=== PATIENT | male | born 1965 | race Caucasian/White ===

== ENCOUNTER 2018-03-18 10:08 | Inpatient (IN) | payer BC ==
[~2018-03-18] VITALS: Ht 167.6 cm; Wt 59.9 kg
--- NOTE | 2018-03-18 10:14 | NUR ---
[facility] 06. PER REPORT, DIARRHEA SINCE YESTERDAY. GOWNED AND PLACED ON MONITOR. BLOOD PRESSURE, 80/60. PT IS AAO, VERBALLY RESPONSIVE. AWAITING MD LATIF.
--- NOTE | 2018-03-18 10:18 | NUR ---
DR BARONE AT BEDSIDE FOR EVAL.
[2018-03-18] MEDS ORDERED: MAG HYDROX/AL HYDROX/SIMETH 30 ML UDC ONE (10:25)
[2018-03-18] MEDS ORDERED: MAG HYDROX/AL HYDROX/SIMETH 30 ML UDC PO ONE (10:30)
[2018-03-18] MEDS ORDERED: IV NS 0.9% 1,000 ML BAG IV ONE ×2 (10:30→12:30)
--- NOTE | 2018-03-18 10:30 | NUR ---
IV LINE STARTED BLOOD DRAWN AND SENT TO LAB.
[2018-03-18 10:38] LABS: BASOPHILS # (AUTO) 0.1 /CMM (0.0-0.2); BASOPHILS % (AUTO) 0.8 % (0.0-2.0); EOSINOPHILS % (AUTO) 0.8 % (0.0-6.0); HEMATOCRIT 35 % (39-51); HEMOGLOBIN 11.1 g/dL (13.5-17.5); LYMPHOCYTES # (AUTO) 1.1 /CMM (0.8-4.8); LYMPHOCYTES % (AUTO) 15.3 % (20.0-44.0); MEAN CORPUSCULAR HGB CONC 31 g/dl (31.0-36.0); MEAN CORPUSCULAR VOLUME 90 fL (80-96); MONOCYTES # (AUTO) 0.8 /CMM (0.1-1.30); MONOCYTES % (AUTO) 10.7 % (2.0-12.0); NEUTROPHILS # (AUTO) 5.4 /CMM (1.8-8.9); NEUTROPHILS % (AUTO) 72.4 % (43.0-81.0); PLATELET COUNT (AUTO) 190 /CMM (150-450); RED BLOOD CELL COUNT(AUTO) 3.93 MIL/uL (4.5-6.0); WHITE BLOOD COUNT (AUTO) 7.4 K/uL (4.3-11.0)
[2018-03-18] MEDS ORDERED: ASPI-1169 PO (10:38)
[2018-03-18] MEDS ORDERED: MAGN400T26 PO (10:38)
[2018-03-18] MEDS ORDERED: MULT-447 PO (10:38)
[2018-03-18] MEDS ORDERED: MEMA10TA PO (10:38)
[2018-03-18] MEDS ORDERED: LENA5CAP PO (10:38)
[2018-03-18] MEDS ORDERED: PANT40TA2 PO (10:38)
[2018-03-18] MEDS ORDERED: MAGN400O6 PO (10:38)
[2018-03-18] MEDS ORDERED: VITA1TAB56 PO (10:38)
[2018-03-18] MEDS ORDERED: SILV20CR13 TP (10:38)
[2018-03-18] MEDS ORDERED: ESCI10TA PO (10:38)
[2018-03-18] MEDS ORDERED: HYDR4TAB4 PO (10:38)
[2018-03-18] MEDS ORDERED: ONDA8TAB6 PO (10:38)
[2018-03-18] MEDS ORDERED: GABA-534 PO (10:38)
[2018-03-18] MEDS ORDERED: CARB-95 PO (10:38)
[2018-03-18] MEDS ORDERED: ACET-2605 PO (10:38)
[2018-03-18] MEDS ORDERED: IPRA3AMP23 IH (10:38)
[2018-03-18] MEDS ORDERED: DOCU-141 PO (10:38)
[2018-03-18] MEDS ORDERED: ASCO500T9 PO (10:38)
[2018-03-18] MEDS ORDERED: ACID1TAB12 PO (10:38)
[2018-03-18 10:43] LABS: CALCIUM, SERUM 9.4 mg/dL (8.5-10.1); CREATININE 1.3 mg/dL (0.6-1.3); POTASSIUM 3.9 mmol/L (3.5-5.1)
[2018-03-18 10:49] LABS: BILIRUBIN,DIRECT 0.1 mg/dL (0.0-0.2); BILIRUBIN,TOTAL 0.4 mg/dL (0.2-1.0)
--- NOTE | 2018-03-18 11:00 | NUR ---
Note jefone in EDM - 03/18/18 at 1103 by YAEL PT RUMA FROM [facility] TO ER BED 06. PER REPORT, DIARRHEA SINCE YESTERDAY. GOWNED AND PLACED ON MONITOR. BLOOD PRESSURE, 80/60. PT IS AAO, VERBALLY RESPONSIVE. AWAITING MD LATIF.
[2018-03-18 11:01] LABS: BAND % (MANUAL) 3 % (0.0-5.0); EOSINOPHILS % (MANUAL) 1 % (0-4); LYMPHOCYTES % (MANUAL) 13 % (16-48); MONOCYTES % (MANUAL) 7 % (0-11.0); NEUTROPHILS % (MANUAL) 74 (42-76); REACTIVE LYMPHOCYTES 2 % (0-0)
--- NOTE | 2018-03-18 11:15 | NUR ---
PT TO RADIOLOGY FOR ABDOMINAL CT SCAN VIA [facility]
--- NOTE | 2018-03-18 13:18 | NUR ---
MS BRADLEY PAGED DR. DAMIAN CONTACTED DR. DAMIAN REGARDING ADMISSION ORDERS, AWAITING RESPONSE. Addendum: 03/18/18 at 1609 by PEDRITO STEWART RN ERROR: WRONG TIME, PLEASE DISREGARD.
--- NOTE | 2018-03-18 14:09 | NUR ---
TRANSFERED TO FLOOR. STABLE CONDITION. REPORT WAS GIVEN TO PEDRITO BRADLEY.
[2018-03-18 14:10] VITALS: BP 99/64
--- NOTE | 2018-03-18 14:10 | NUR ---
MS AUTOM[employer]BILE [employer]ICE STATION ATTENDANT NOTE RECEIVED PT FROM ER VIA JERMAIN CLEMENT OF ACUTE DEHYDRATION. PT IS ALERT TO SELF, ABLE TO MAKE BASIC NEEDS KNOWN AND ANSWER QUESTIONS. DENIES N/V, CHEST PAIN, SOB. NO ACUTE DISTRESS NOTED AT THIS TIME. BREATHING IS EVEN AND UNLABORED ON ROOM AIR. R WRIST #20G IV IS SALINE LOCKED WITHOUT REDNESS OR SWELLING. ALL BELONGINGS ACCOUNTED FOR AND BELONGINGS LIST SIGNED AND PLACED IN CHART. WOUND DOCUMENTATION COMPLETED PER PROTOCOL. NIECE AND CAREGIVER AT THE BEDSIDE TO ACCOMPANY PT. POLST AND ADVANCED DIRECTIVE COPIES PLACED IN CHART. PROVIDED UNIT ORIENTATION TO PT, NIECE AND CAREGIVER, ALL VERBALIZED UNDERSTANDING. BED IS AMBER AND IN LOWEST POSITION, SIDE RAILS UP X2, BED ALARM ON, CALL LIGHT WITHIN REACH. ADMITTING IS DR. BHAVANI DAMIAN, AWAITING ADMISSION ORDERS.
--- NOTE | 2018-03-18 14:30 | NUR ---
MS RN DR. BHAVANI DAMIAN AT THE BEDSIDE DR. BHAVANI DAMIAN AT THE BEDSIDE TO ASSESS PT. THE NURSE AND CAREGIVER ALERTED DR DAMIAN TO DX OF SHINGLES APPROXIMATELY [address] DAMIAN, SINCE PT HAS BEEN RECEIVING TREATMENT AND BECAUSE LESIONS ARE CRUSTED OVER, NO ISOLATION IS INDICATED AT THIS TIME. ADMISSION ORDERS PENDING.
--- NOTE | 2018-03-18 15:18 | NUR ---
MS RN PAGED DR. DAMIAN CONTACTED DR. DAMIAN REGARDING ADMISSION ORDERS, AWAITING RESPONSE.
[2018-03-18] MEDS ORDERED: ONDANSETRON HCL/PF 4 MG/2 ML VIAL IVP PRN (15:30)
[2018-03-18] MEDS ORDERED: Z GUARD REMEDY 2 OZ OINT TP PRN (15:30)
[2018-03-18] MEDS: IV NS 0.9% 1,000 ML IV PRN (15:52)
[2018-03-18] MEDS: ENOXAPARIN SODIUM 40 MG/0.4 ML DISP.SYRIN SQ SCH ×2 (15:53→21:00)
[2018-03-18 16:00] VITALS: BP 91/54
[2018-03-18 16:30] VITALS: BP 95/58
--- NOTE | 2018-03-18 16:55 | NUR ---
MS BRADLEY C. DIFF SAMPLE C. DIFF STOOL SAMPLE COLLECTED AND HAND DELIVERED TO PHARMACY PER PROTOCOL.
[2018-03-18] MEDS: CEFTRIAXONE 1 G in IV D5W 50 ML IV SCH (16:57)
--- NOTE | 2018-03-18 17:30 | NUR ---
MS BRADLEY MRSA SWAB MRSA SWAB OBTAINED PER PROTOCOL. INFORMED SILVANO IN LAB FOR PHONE BANKER.
[2018-03-18] MEDS: VANCOMYCIN HCL 125 MG/2.5 ML ORAL.SUSP PO SCH ×2 (17:54→23:44)
[2018-03-18 18:00] VITALS: BP 93/57
[2018-03-18 18:19] VITALS: BP 100/63
--- NOTE | 2018-03-18 18:21 | NUR ---
MS RN CLOSING NOTE PT IN BED, SLEEPING AND EASILY AROUSABLE. PT IS ALERT X1, ABLE TO MAKE BASIC NEEDS KNOWN AND ANSWER QUESTIONS. DENIES N/V, CHEST PAIN, SOB. NO ACUTE DISTRESS NOTED AT THIS TIME. BREATHING IS EVEN AND UNLABORED ON 2L NC. R WRIST #20G IV IS INFUSING NS @100ML/HR WITHOUT REDNESS OR SWELLING. PT ASSISTED TO TURN AND REPOSITION Q2H FOR THE DURATION OF THE SHIFT, ADLS PROVIDED. ALL NEEDS ATTENDED TO, BED IS LOCKED AND IN LOWEST POSITION, SIDE RAILS UP X2, BED ALARM ON, CALL LIGHT WITHIN REACH. WILL ENDORSE TO LEAD DIE MOLDER RN FOR CONTINUITY OF CARE.
--- NOTE | 2018-03-18 19:30 | NUR ---
MS/RN RECEIVE PATIENT SLEEPING, CALM AND COMFORTABLE, BREATHING EVEN AND UNLABORED, NO SIGNS OF DISTRESS NOTED, CALL LIGHT IN REACH. WILL MONITOR.
[2018-03-18 20:00] VITALS: BP 92/57
--- NOTE | 2018-03-18 22:31 | NUR ---
MS/RN LOVENOX WAS NOT GIVEN, THIS MED WAS GIVEN AT 15:53 TODAY.
--- NOTE | 2018-03-18 23:48 | NUR ---
MS/RN PATIENT IS AWAKE AT THIS TIME, VANCOMYCIN PO WAS GIVEN ORDERED. WILL CONTINUE TO MONITOR.
[2018-03-19] MEDS: IV NS 0.9% 1,000 ML IV PRN ×2 (04:54→17:40)
[2018-03-19] MEDS: VANCOMYCIN HCL 125 MG/2.5 ML ORAL.SUSP PO SCH ×3 (06:03→18:15)
[2018-03-19 06:33] LABS: BASOPHILS % (AUTO) 0.5 % (0.0-2.0); EOSINOPHILS % (AUTO) 2.4 % (0.0-6.0); HEMATOCRIT 28 % (39-51); HEMOGLOBIN 8.9 g/dL (13.5-17.5); LYMPHOCYTES # (AUTO) 0.7 /CMM (0.8-4.8); LYMPHOCYTES % (AUTO) 14.9 % (20.0-44.0); MEAN CORPUSCULAR HGB CONC 32 g/dl (31.0-36.0); MEAN CORPUSCULAR VOLUME 89 fL (80-96); MONOCYTES # (AUTO) 0.5 /CMM (0.1-1.30); MONOCYTES % (AUTO) 9.9 % (2.0-12.0); NEUTROPHILS # (AUTO) 3.4 /CMM (1.8-8.9); NEUTROPHILS % (AUTO) 72.3 % (43.0-81.0); PLATELET COUNT (AUTO) 136 /CMM (150-450); RED BLOOD CELL COUNT(AUTO) 3.14 MIL/uL (4.5-6.0); WHITE BLOOD COUNT (AUTO) 4.7 K/uL (4.3-11.0)
--- NOTE | 2018-03-19 06:38 | NUR ---
MS/RN PATIENT IS AWAKE, ALERT, COMFORTABLE, NO CHANGE IN CONDITION, ALL NEEDS ATTENDED AT THIS TIME, WILL CONTINUE TO MONITOR.
[2018-03-19 06:51] LABS: THYROID STIMULATING HORMONE 1.816 uIU/mL (0.358-3.74)
[2018-03-19 06:56] LABS: ALBUMIN 1.7 g/dL (3.4-5.0); BILIRUBIN,TOTAL 0.3 mg/dL (0.2-1.0); CALCIUM, SERUM 9.1 mg/dL (8.5-10.1); MAGNESIUM 1.6 mg/dL (1.8-2.4); PHOSPHORUS 2.8 mg/dL (2.5-4.9); TOTAL PROTEIN, SERUM 4.2 g/dL (6.4-8.2)
[2018-03-19 06:59] LABS: POTASSIUM 2.8 mmol/L (3.5-5.1)
--- NOTE | 2018-03-19 07:10 | NUR ---
MS RN OPENING PT IN BED, SLEEPING AND EASILY AROUSABLE. PT A/O X2. DENIES N/V, CHEST PAIN, SOB. NO ACUTE DISTRESS NOTED AT THIS TIME. BREATHING IS EVEN AND UNLABORED ON 2L NC. R WRIST #20G IV IS INFUSING NS @100ML/HR . BED IS LOCKED AND IN LOWEST POSITION, SIDE RAILS UP X2, BED ALARM ON, CALL LIGHT WITHIN REACH
--- NOTE | 2018-03-19 07:19 | NUR ---
MS/RN RECEIVED A CALL FROM LAB RE: K=2.8, ENDORSED TO NEXT RN.
[2018-03-19 08:00] VITALS: BP 86/57
[2018-03-19] MEDS: PANTOPRAZOLE 40 MG TABLET.DR PO SCH (09:24)
[2018-03-19] MEDS: Magnesium 1GM/D5W 100ML PREMIX 100 ML IV SCH ×2 (09:24→10:22)
[2018-03-19] MEDS: POTASSIUM CHLORIDE 20 MEQ TAB.PRT.SR PO SCH ×3 (09:24→12:29)
[2018-03-19] MEDS: ACETAMINOPHEN 325 MG TABLET PO PRN ×2 (10:25→17:22)
[2018-03-19] MEDS: CEFTRIAXONE 1 G in IV D5W 50 ML IV SCH (15:35)
[2018-03-19 16:00] VITALS: BP 101/63
--- NOTE | 2018-03-19 17:30 | NUR ---
PT COMPLAINED OF PAIN IN LOWER EXTREMITIES. PAGED DR CABRALES FOR PRN PAIN MEDS.
--- NOTE | 2018-03-19 18:25 | NUR ---
MS RN CLOSING NOTES PT IN BED, AWAKE A/O X2. NO ACUTE DISTRESS NOTED AT THIS TIME. BREATHING IS EVEN AND UNLABORED ON 2L NC. R WRIST #20G IV IS INFUSING NS @100ML/HR . ALL NEEDS ATTENDED, TURNED AND REPOSITIONED Q2H. BED IS LOCKED AND IN LOWEST POSITION, SIDE RAILS UP X2, BED ALARM ON, CALL LIGHT WITHIN REACH. WILL ENDORSE TO NEXT SHIFT
--- NOTE | 2018-03-19 18:59 | NUR ---
RECEIVED ORDER FROM DR YUDELKA CLARK5/325 Q6H PRN.
[2018-03-19] MEDS ORDERED: HYDROCODONE/APAP 5/325MG 1 EACH TABLET PO PRN ×2 (19:00→19:30)
--- NOTE | 2018-03-19 19:42 | NUR ---
MS/RN RECEIVE PATIENT APPEAR SLEEPING, APPEAR COMFORTABLE, BREATHING EVEN AND UNLABORED, IVF INFUSING, CALL LIGHT IN REACH. WILL MONITOR.
[2018-03-19 20:00] VITALS: BP 92/52
[2018-03-19] MEDS: ENOXAPARIN SODIUM 40 MG/0.4 ML DISP.SYRIN SQ SCH (21:34)
[2018-03-20] VITALS: BP 119/69
[2018-03-20] MEDS: VANCOMYCIN HCL 125 MG/2.5 ML ORAL.SUSP PO SCH ×4 (00:15→18:07)
[2018-03-20 06:45] LABS: BASOPHILS % (AUTO) 0.4 % (0.0-2.0); EOSINOPHILS % (AUTO) 0.9 % (0.0-6.0); HEMATOCRIT 29 % (39-51); HEMOGLOBIN 9.1 g/dL (13.5-17.5); LYMPHOCYTES # (AUTO) 0.6 /CMM (0.8-4.8); LYMPHOCYTES % (AUTO) 12.6 % (20.0-44.0); MEAN CORPUSCULAR HGB CONC 32 g/dl (31.0-36.0); MEAN CORPUSCULAR VOLUME 90 fL (80-96); MONOCYTES # (AUTO) 0.4 /CMM (0.1-1.30); MONOCYTES % (AUTO) 8.1 % (2.0-12.0); PLATELET COUNT (AUTO) 145 /CMM (150-450); RED BLOOD CELL COUNT(AUTO) 3.19 MIL/uL (4.5-6.0); WHITE BLOOD COUNT (AUTO) 5.1 K/uL (4.3-11.0)
[2018-03-20 07:14] LABS: CALCIUM, SERUM 8.3 mg/dL (8.5-10.1); CREATININE 0.9 mg/dL (0.6-1.3); MAGNESIUM 1.8 mg/dL (1.8-2.4); PHOSPHORUS 2.8 mg/dL (2.5-4.9)
[2018-03-20 07:37] LABS: POTASSIUM 2.8 mmol/L (3.5-5.1)
[2018-03-20] MEDS: IV NS 0.9% 1,000 ML IV PRN ×2 (07:59→22:02)
[2018-03-20 08:00] VITALS: BP_SYST 117; BP_SYST 96; BP_DIAS 60; BP_DIAS 75
--- NOTE | 2018-03-20 08:00 | NUR ---
MS RN RECEIVED ON BED, AWAKE,ALERT,ORIENTED X2, NOT IN ANY FORM OF DISTRESS, RESPIRATIONS EVEN AND UNLABORED,NO SOB NOTED,WILL MONITOR PATIENT.
--- NOTE | 2018-03-20 08:00 | NUR ---
MNS/RN PATIENT IS AWAKE, COMFORTABLE, NO DISTRESS NOTED, ALL NEEDS ATTENDED AT THIS TIME, WILL CONTINUE TO MONITOR.
[2018-03-20] MEDS: PANTOPRAZOLE 40 MG TABLET.DR PO SCH (08:24)
--- NOTE | 2018-03-20 08:30 | NUR ---
MS BRADLEY RECEIVED A CRITICAL K - RESULT - 2.8 W/ ORDERS MADE AND CARRIED OUT FROM DR. CABRALES.
--- NOTE | 2018-03-20 09:00 | NUR ---
MS BRADLEY BREAKFAST SERVED,DUE MEDS GIVEN,TOLERATED WELL.
[2018-03-20] MEDS: ENSURE ENLIVE CHOC 237 ML CAN PO SCH ×3 (10:00→18:06)
[2018-03-20] MEDS: ACETAMINOPHEN 325 MG TABLET PO PRN (12:54)
[2018-03-20] MEDS: POTASSIUM CHLORIDE 20 MEQ TAB.PRT.SR PO SCH ×3 (12:56→18:08)
[2018-03-20] MEDS ORDERED: REVLIMID 5 MG PO SCH (14:00)
[2018-03-20] MEDS: HYDROMORPHONE HCL 2 MG TABLET PO PRN ×2 (14:22→21:13)
[2018-03-20 16:00] VITALS: BP 119/66
--- NOTE | 2018-03-20 16:00 | NUR ---
MS RN MS RECEIVED CALL FROM [facility], PATIENT IS C DIFF POSITIVE ,ON IV ATB ALREADY.
--- NOTE | 2018-03-20 16:59 | NUR ---
MS RN RECEIVED A CALL FROM [facility] W/ POSITIVE MRSA W/ ORDER FROM DR. CABRALES.
--- NOTE | 2018-03-20 17:00 | NUR ---
MS RN PATIENT ON ISOLATION NOW.
--- NOTE | 2018-03-20 18:57 | NUR ---
ms rn on bed, no distress noted,all needs attended.
--- NOTE | 2018-03-20 19:35 | NUR ---
MS RN NOTES RECEIVED RESTING COMFORTABLY ON BED,BREATHING REGULAR,NOT IN ANY FORM OF DISTRESS/ON ISOLATION PRECAUTION FOR MRSA NARES AND C-DIFF POSITIVE.INCONTINENT OF URINE,NOTED SACRAL WOUND,DRESSING IN PLACE,MULTIPLE OLD DRY WOUND ON BILATERAL THIGH AND LEFT GROIN.WILL PUT ON SPECIALTY MATTRES.ON NS AT 100ML /HR RATE INFUSING ON LEFT AC.WILL CONTINUE TO MONITOR STATUS.
[2018-03-20 20:00] VITALS: BP 101/63
[2018-03-20] MEDS: MUPIROCIN OINT 2% 22 GM TUBE SCH (21:00)
--- NOTE | 2018-03-20 21:00 | NUR ---
MS RN NOTES PLACE ON GEL BED FOR WOUND MANAGEMENT.DRESSING CHANGE DONE ON SACRAL AREA WITH XEROFOARM AND APPLIED MEPILEX.
[2018-03-20] MEDS: ENOXAPARIN SODIUM 40 MG/0.4 ML DISP.SYRIN SQ SCH (21:01)
--- NOTE | 2018-03-20 21:13 | NUR ---
MS RN NOTES C/O PAIN ON SACRAL AREA 9/10 ON PAIN SCALE,MEDICATED WITH DILAUDID 4MG PO ORDERED,TAKEN WELL,NEGATIVE FOR ASPIRATION
[2018-03-21] MEDS: VANCOMYCIN HCL 125 MG/2.5 ML ORAL.SUSP PO SCH ×4 (00:08→17:42)
--- NOTE | 2018-03-21 01:00 | NUR ---
MS RN NOTES SLEEPING,KEPT WARM AND COMFORTABLE.
--- NOTE | 2018-03-21 04:30 | NUR ---
MS RN NOTES SALINE LOCK ACCIDENTALLY PULLED OUT.NEW SALINE LOCK PLACE ON RIGHT FOREARM #22.IVF RE STARTED.
--- NOTE | 2018-03-21 06:21 | NUR ---
MS RN NOTES REMAINS ON ISOLATION PRECAUTION FOR MRSA NARES AND C-DIFF POSITIVE.WITH ON E LOOSE BM,PAIN MANAGEMENT EFFECTIVE.BLIND ON BOTH EYES.CALL LIGHT IN REACH,NEEDS ATTENDED.WILL ENDORSE TO DAY NURSE FOR BALA.
--- NOTE | 2018-03-21 06:30 | NUR ---
MS RN NOTED SEEN AND EXAMINED BY [facility] WOUND CARE NURSE,NOTED DTI ON RIGHT HEEL 1.5 X1.5CM,APPLIED MEPILEX AND ELEVATED ON PILLOWS,OFF LOAD FROM BED MATTRESS.
[2018-03-21 06:35] LABS: BASOPHILS % (AUTO) 0.7 % (0.0-2.0); CALCIUM, SERUM 8.1 mg/dL (8.5-10.1); CREATININE 0.9 mg/dL (0.6-1.3); EOSINOPHILS % (AUTO) 3.9 % (0.0-6.0); HEMATOCRIT 27 % (39-51); HEMOGLOBIN 8.6 g/dL (13.5-17.5); LYMPHOCYTES # (AUTO) 0.5 /CMM (0.8-4.8); LYMPHOCYTES % (AUTO) 15.1 % (20.0-44.0); MAGNESIUM 1.4 mg/dL (1.8-2.4); MEAN CORPUSCULAR HGB CONC 32 g/dl (31.0-36.0); MEAN CORPUSCULAR VOLUME 89 fL (80-96); MONOCYTES # (AUTO) 0.5 /CMM (0.1-1.30); NEUTROPHILS # (AUTO) 2.2 /CMM (1.8-8.9); NEUTROPHILS % (AUTO) 65.3 % (43.0-81.0); PHOSPHORUS 1.9 mg/dL (2.5-4.9); PLATELET COUNT (AUTO) 128 /CMM (150-450); POTASSIUM 3.4 mmol/L (3.5-5.1); RED BLOOD CELL COUNT(AUTO) 3.02 MIL/uL (4.5-6.0); WHITE BLOOD COUNT (AUTO) 3.4 K/uL (4.3-11.0)
--- NOTE | 2018-03-21 07:30 | NUR ---
MS RN OPENING NOTE RECEIVED PT IN BED, ALERT AND ORIENTED X1-2, ABLE TO FOLLOW COMMANDS AND MAKE NEEDS KNOWN. NO ACUTE DISTRESS NOTED AT THIS TIME. PT DENIES ANY PAIN. BREATHING IS EVEN AND UNLABORED ON 4.5L NC. R FA @22G IV IS INFUSING NS @ 100ML/HR WITHOUT REDNESS OR SWELLING. ASPIRATION AND CONTACT PRECAUTIONS MAINTAINED. ALL NEEDS ATTENDED TO, BED IS LOCKED AND IN LOWEST POSITION, SIDE RAILS UP X3, BED ALARM ON, CALL LIGHT WITHIN REACH.
--- NOTE | 2018-03-21 07:42 | NUR ---
WOUND CARE CONSULT PATIENT SEEN AND SKIN INTEGRITY ASSESSMENT DONE. SEE SPEECH WRITER ASSESSMENT IN PCS FOR TODAY. PATIENT WITH MI AT 12, RECOMMEND TURNING Q 2 HOURS AND BILATERAL HEEL FLOATING. ALL SKIN MANAGEMENT AND PRESSURE ULCER PREVENTION MEASURES DISCUSSED WITH NURSING AT THE BEDSIDE. DR SAMRA WALKER HAS BEEN NOTIFIED OF THE SACRAL STAGE 4 PRESSURE ULCER CONSULT. WILL DEFER DRY HEALING SHINGLES RASHES TO PMD. Addendum: 03/21/18 at 0745 by MARIAM CERRATO WNDNU Amended: Links added.
[2018-03-21 08:00] VITALS: BP_SYST 114; BP_DIAS 74; BP_DIAS 75
[2018-03-21] MEDS: PANTOPRAZOLE 40 MG TABLET.DR PO SCH (08:16)
[2018-03-21] MEDS: ENSURE ENLIVE CHOC 237 ML CAN PO SCH ×3 (08:30→17:43)
[2018-03-21] MEDS: MUPIROCIN OINT 2% 22 GM TUBE SCH ×2 (08:30→20:38)
[2018-03-21] MEDS: ACETAMINOPHEN 325 MG TABLET PO PRN ×2 (08:42→20:45)
--- NOTE | 2018-03-21 08:43 | NUR ---
MS RN PAIN CONTROL PT REPORTS PAIN10/10 THAT IS STABBING AT THE SACRUM DUE TO THIS WOUND. DILAUDID 2MG PO ORDERED FOR PAIN CONTROL HOWEVER PT BP IS 104/60. PT AGREEABLE TO TAKING TYLENOL 650MG FOR PAIN CONTROL FOR NOW AND TO ELEVATE LEGS AND EAT BREAKFAST TO INCREASE BP PRIOR TO DILAUDID ADMINISTRATION. WILL CONTINUE TO MONITOR.
[2018-03-21] MEDS ORDERED: POTASSIUM CHLORIDE 20 MEQ TAB.PRT.SR PO SCH (10:00)
[2018-03-21] MEDS: DAKINS QUARTER STRENGTH (0.125%) 480 ML BOTTLE TOP SCH (10:12)
[2018-03-21] MEDS: Magnesium 1GM/D5W 100ML PREMIX 100 ML IV SCH ×4 (10:14→14:16)
[2018-03-21] MEDS: HYDROMORPHONE HCL 2 MG TABLET PO PRN (10:30)
--- NOTE | 2018-03-21 10:30 | NUR ---
MS RN DILAUDID DILAUDID 4MG PO ADMINISTERED ORDERED FOR SEVERE PAIN AT THE SACRUM RATED 9/10 THAT IS SHARP AND STABBING. PT STATES HE DOES NOT WANT TO EAT BREAKFAST UNTIL THE PAIN IS BETTER CONTROLLED SINCE HE CANNOT SIT UP DUE TOT HE PAIN. BP: 111/75, HR: 110. WILL CONTINUE TO MONITOR.
[2018-03-21] MEDS ORDERED: K PHOS NEUTRAL 250 MG TABLET PO ONE (11:00)
--- NOTE | 2018-03-21 11:00 | NUR ---
MS RN BREAKFAST PT REFUSED THE REST OF BREAKFAST, ABLE TO FINISH ENTIRE GLUCERNA SHAKE AND 1 APPLE JUICE, HOWEVER REFUSED THE REST OF BREAKFAST.
[2018-03-21] MEDS ORDERED: SILVER NITRATE APPLICATOR 1 EA BOX TP ONE (12:30)
--- NOTE | 2018-03-21 12:30 | NUR ---
MS RN AURELIANO UGTIERREZ, PRIVATE CAREGIVER, SON BRISSA WILL BRING HOME MEDICATION REVLIMID TOMORROW MORNING.
--- NOTE | 2018-03-21 13:00 | NUR ---
MS RN LUNCH PT REFUSED TO EAT LUNCH PROVIDED BY HOSPITAL. PT DID EAT A FEW BITES OF [place] PROVIDED BY PRIVATE CAREGIVER MATT AND DID FINISH CHOCOLATE ENSURE.
--- NOTE | 2018-03-21 14:58 | NUR ---
MS RN TELEPHONE CONSENT TELEPHONE CONSENT OBTAINED VIA 2 RN VERIFICATION FROM YOLANDE ARAUJO FOR EXCISIONAL DEBRIDEMENT OF SACRAL WOUND SCHEDULED FOR TOMORROW. CONSENT PLACED IN CHART.
[2018-03-21] MEDS: RIFAMPIN 300 MG CAPSULE PO SCH (15:28)
[2018-03-21 16:00] VITALS: BP_SYST 107; BP_SYST 118; BP_DIAS 73; BP_DIAS 78
--- NOTE | 2018-03-21 17:00 | NUR ---
MS RN DINNER PT REFUSED DINNER TRAY EXCEPT ENSURE CHOCOLATE SHAKE AND APPLE JUICE. STATED HE DOES NOT FEEL UP TO EATING. ENCOURAGED PO INTAKE, WILL REQUEST DIETARY EVALUATION/FOLLOW UP.
[2018-03-21] MEDS: GABAPENTIN 300 MG CAPSULE PO SCH (17:41)
[2018-03-21] MEDS: CARBIDOPA/LEVA CR 25/100MG 1 TAB.SA PO SCH (17:42)
[2018-03-21] MEDS: IV NS 0.9% 1,000 ML IV PRN (17:42)
[2018-03-21] MEDS: ACIDOPHILUS/BULGARICUS 1 EACH TAB.CHEW PO SCH (17:42)
--- NOTE | 2018-03-21 18:11 | NUR ---
MS RN CLOSING NOTE PT IN BED, ALERT AND ORIENTED X1-2, ABLE TO FOLLOW COMMANDS AND MAKE NEEDS KNOWN. NO ACUTE DISTRESS NOTED AT THIS TIME. PT DENIES ANY PAIN. BREATHING IS EVEN AND UNLABORED ON 4.5L NC. R FA #22G IV IS INFUSING NS @ 100ML/HR WITHOUT REDNESS OR SWELLING. ASPIRATION AND CONTACT PRECAUTIONS MAINTAINED. ALDS PROVIDED AND PT ASSISTED TO TURN AND REPOSITION Q2H FOR THE DURATION OF THE SHIFT. WOUND CARE PROVIDED ORDERED. PT HAD POOR PO INTAKE WHEN FED WITH ASSISTANCE FOR BREAKFAST, LUNCH, AND DINNER. DIETARY CONSULT TO FOLLOW UP. ALL NEEDS ATTENDED TO, BED IS LOCKED AND IN LOWEST POSITION, SIDE RAILS UP X3, BED ALARM ON, CALL LIGHT WITHIN REACH. WILL ENDORSE TO CORE PLACER RN FOR CONTINUITY OF CARE.
--- NOTE | 2018-03-21 19:45 | NUR ---
MS RN NOTES RECEIVED ON BED A/O X1-2,NO SOB,O2 IN USED AT 2L/NC TO KEEP O2 SAT ABOVE 90%,O2 SAT 96% THIS TIME.PATIENT PULLED OUT HIS IV LINE.NOTED MULTIPLE DRY WOUNDON BOTH UPPER AND LOWER EXTREMITIES PROMINENTLY ON LEFT LEG.RIGHT HEEL DTI WITH MEPILEX OFFLOADING FROM BED MATTRESS.REPOSITION Q 2 HOURS PER PROTOCOL
[2018-03-21 20:00] VITALS: BP 96/61
--- NOTE | 2018-03-21 20:00 | NUR ---
MS RN NOTES ISOLATION PRECAUTION FOR MRSA NARES AND C-DIFF POSITIVE.ON BACTROBAN.
--- NOTE | 2018-03-21 20:00 | NUR ---
MS RN NOTES NEW SALINE LOCK PLACE ON LEFT WRIST #22,SECURED WITH KERLIX.IVF RE STARTED.
[2018-03-21] MEDS: ENOXAPARIN SODIUM 40 MG/0.4 ML DISP.SYRIN SQ SCH (20:36)
--- NOTE | 2018-03-21 20:45 | NUR ---
MS RN NOTES C/O MILD LOWER BACK PAIN,TYLENOL 650MG PO GIVEN WITH APPLE SAUCE,TAKEN WELL.NEGATIVE FOR ASPIRATION
[2018-03-22] MEDS: VANCOMYCIN HCL 125 MG/2.5 ML ORAL.SUSP PO SCH ×4 (00:25→17:10)
[2018-03-22] MEDS: IV NS 0.9% 1,000 ML IV PRN ×2 (04:13→20:54)
[2018-03-22] MEDS: ACETAMINOPHEN 325 MG TABLET PO PRN (05:58)
--- NOTE | 2018-03-22 05:58 | NUR ---
MS RN NOTES AWAKE,MORNING CARE RENDERED BY ROSE SUERO.C/O MILD PAIN ON SACRAL AREA,MEDICATED WITH TYLENOL 650MG PO WITH PUDDING TOLERATED WELL.NEGATIVE FOR ASPIRATION.
[2018-03-22 07:03] LABS: BASOPHILS % (AUTO) 1.2 % (0.0-2.0); EOSINOPHILS % (AUTO) 4.9 % (0.0-6.0); HEMATOCRIT 28 % (39-51); HEMOGLOBIN 8.9 g/dL (13.5-17.5); LYMPHOCYTES # (AUTO) 0.5 /CMM (0.8-4.8); LYMPHOCYTES % (AUTO) 17.9 % (20.0-44.0); MEAN CORPUSCULAR HGB CONC 32 g/dl (31.0-36.0); MEAN CORPUSCULAR VOLUME 89 fL (80-96); MONOCYTES # (AUTO) 0.3 /CMM (0.1-1.30); MONOCYTES % (AUTO) 13.5 % (2.0-12.0); NEUTROPHILS # (AUTO) 1.6 /CMM (1.8-8.9); NEUTROPHILS % (AUTO) 62.5 % (43.0-81.0); PLATELET COUNT (AUTO) 116 /CMM (150-450); RED BLOOD CELL COUNT(AUTO) 3.12 MIL/uL (4.5-6.0); WHITE BLOOD COUNT (AUTO) 2.6 K/uL (4.3-11.0)
--- NOTE | 2018-03-22 07:25 | NUR ---
MS RN NOTES ON BED,SLEEPING BUT AROUSABLE TO VERBAL STIMULI,BREATHING REGULAR,IVF IN PROGRESS,STILL ON ISOLATION PRECAUTION FOR MRSA NARES AND C-DIFF.FOR WOUND DEBRIDEMENT AT BEDSIDE TODAY,CONSENT ON CHART.ENDORSED TO LOLLY BRADLEY FOR BALA
[2018-03-22 07:28] LABS: CALCIUM, SERUM 7.2 mg/dL (8.5-10.1); CREATININE 0.8 mg/dL (0.6-1.3); MAGNESIUM 1.9 mg/dL (1.8-2.4); PHOSPHORUS 2.1 mg/dL (2.5-4.9)
--- NOTE | 2018-03-22 07:30 | NUR ---
MS RN OPENING NOTES RECEIVED PATIENT IN STABLE CONDITION. IN NO APPARENT DISTRESS. BEDSIDE RAILS ARE UPX2. BED IS LOCKED AND LOWERED. CALL LIGHT IS WITHIN REACH. IV LINE IS INTACT AND PATENT. WILL CONTINUE TO MONITOR PATIENT.
[2018-03-22 07:45] LABS: POTASSIUM 2.8 mmol/L (3.5-5.1)
[2018-03-22 07:57] LABS: LYMPHOCYTES % (MANUAL) 15 % (16-48); NEUTROPHILS % (MANUAL) 68 (42-76)
[2018-03-22 07:58] LABS: EOSINOPHILS % (MANUAL) 5 % (0-4); MONOCYTES % (MANUAL) 12 % (0-11.0)
[2018-03-22 08:00] VITALS: BP 111/67
[2018-03-22] MEDS: GABAPENTIN 300 MG CAPSULE PO SCH ×3 (09:07→17:10)
[2018-03-22] MEDS: ACIDOPHILUS/BULGARICUS 1 EACH TAB.CHEW PO SCH ×2 (09:07→17:10)
[2018-03-22] MEDS: ESCITALOPRAM OXALATE (10 MG) 10 MG TABLET PO SCH (09:07)
[2018-03-22] MEDS: MEMANTINE HCL 5 MG TABLET PO SCH (09:08)
[2018-03-22] MEDS: CARBIDOPA/LEVA CR 25/100MG 1 TAB.SA PO SCH ×3 (09:08→17:10)
[2018-03-22] MEDS: PANTOPRAZOLE 40 MG TABLET.DR PO SCH (09:08)
[2018-03-22] MEDS: POTASSIUM CHLORIDE 20 MEQ TAB.PRT.SR PO SCH (09:08)
[2018-03-22] MEDS: RIFAMPIN 300 MG CAPSULE PO SCH (09:08)
[2018-03-22] MEDS: ASPIRIN 81 MG TAB.CHEW PO SCH (09:08)
[2018-03-22] MEDS: MUPIROCIN OINT 2% 22 GM TUBE SCH ×2 (09:09→20:33)
[2018-03-22] MEDS: POTASSIUM CL. PREMIX PERIPHER. 50 ML IV SCH ×4 (09:09→14:26)
[2018-03-22] MEDS: DAKINS QUARTER STRENGTH (0.125%) 480 ML BOTTLE TOP SCH (09:09)
[2018-03-22] MEDS: ENSURE ENLIVE CHOC 237 ML CAN PO SCH ×3 (09:19→17:09)
[2018-03-22] MEDS: HYDROMORPHONE HCL 2 MG TABLET PO PRN ×2 (09:21→20:22)
[2018-03-22] MEDS ORDERED: K PHOS NEUTRAL 250 MG TABLET PO ONE (13:00)
[2018-03-22 16:00] VITALS: BP 110/72
[2018-03-22] MEDS: REVLIMID 5 MG PO SCH (17:45)
--- NOTE | 2018-03-22 18:38 | NUR ---
MS RN CLOSING NOTES PATIENT IS IN STABLE CONDITION. IN NO APPARENT DISTRESS. BEDSIDE RAILS ARE UPX2. BED IS LOCKED AND LOWERED. CALL LIGHT IS WITHIN REACH. IV LINE IS INTACT AND PATENT. WILL ENDORSE CARE TO SELF PROPELLED DREDGE OPERATOR NURSE FOR BALA.
--- NOTE | 2018-03-22 19:10 | NUR ---
RN MS OPENING NOTES RECEIVED PATIENT IN BED AWAKE ALERT AND ORIENTED X 2, ABLE TO MAKE SIMPLE NEEDS KNOWN, RESPIRATIONS EVEN AND UNLABORED WITH EQUAL RISE AND FALL OF CHEST, DENIES ANY PAIN OR DISCOMFORT AT THIS TIME, ON 02 2 L VIA NC, TOLERATING WELL. ON CONTACT ISOLATION PRECAUTIONS FOR CDIFF AND MRSA NARES. PRECAUTIONS RENDERED, LEFT WRIST IV SITE #22 G INTACT AND PATENT IVF RUNNING ORDERED, ORIENTED TO STAFF, SAFETY PRECAUTIONS IN PLACE, LOW BED AND LOCKED, FLUIDS OFFERED, ALL NEEDS ATTENDED REMAINS COMFORTABLE WILL CONTINUE TO MONITOR AND ATTEND TO NEEDS.
[2018-03-22 20:00] VITALS: BP 98/68
[2018-03-22 20:02] VITALS: BP 98/68
--- NOTE | 2018-03-22 20:22 | NUR ---
RN MS NOTES PATIENT COMPLAINT OF PAIN TO BOTH LEGS 10/ REQUESTING FOR PAIN MEDICATION VS WNL 98/68,113,18,99% 2 L. DILAUDID PO PRN GIVEN ORDERED WILL CONTINUE TO MONITOR FOR EFFECTIVENESS.
[2018-03-22] MEDS: ENOXAPARIN SODIUM 40 MG/0.4 ML DISP.SYRIN SQ SCH (20:54)
--- NOTE | 2018-03-22 20:55 | NUR ---
RN MS NOTES CALLED AND SPOKE TO DR. VANESSA REGARDING LOVENOX SCHEDULED FOR 2100 AT 40MG. MADE AWARE OF PATIENT LABS HEMOGLOBIN 8.9 [id number] AND [id number] PER MD OKJESSA TO GIVE. NO BLEEDING PRESENT, WILL GIVE ORDERED AND CONTINUE TO MONITOR.
[2018-03-23] MEDS: VANCOMYCIN HCL 125 MG/2.5 ML ORAL.SUSP PO SCH ×5 (00:25→23:56)
[2018-03-23] MEDS: HYDROMORPHONE HCL 2 MG TABLET PO PRN ×3 (05:28→22:19)
--- NOTE | 2018-03-23 05:28 | NUR ---
RN MS NOTES PATIENT COMPLAINT OF PAIN 8/10 TO BILATERAL LOWER LEGS, REQUESTING FOR PAIN MEDICATION DILAUDID PO PRN OFFERED PATIENT AGREED. VS TAKEN WNL 101/66,88,96,18 DILAUDID 4MG GIVEN ORDERED. REPOSITIONED WILL CONTINUE TO MONITOR FOR EFFECTIVENESS.
[2018-03-23 06:36] LABS: BASOPHILS % (AUTO) 1.1 % (0.0-2.0); HEMATOCRIT 29 % (39-51); HEMOGLOBIN 9.4 g/dL (13.5-17.5); LYMPHOCYTES # (AUTO) 0.8 /CMM (0.8-4.8); LYMPHOCYTES % (AUTO) 22.7 % (20.0-44.0); MEAN CORPUSCULAR HGB CONC 32 g/dl (31.0-36.0); MEAN CORPUSCULAR VOLUME 89 fL (80-96); MONOCYTES # (AUTO) 0.8 /CMM (0.1-1.30); MONOCYTES % (AUTO) 21.6 % (2.0-12.0); NEUTROPHILS # (AUTO) 1.7 /CMM (1.8-8.9); NEUTROPHILS % (AUTO) 48.6 % (43.0-81.0); PLATELET COUNT (AUTO) 118 /CMM (150-450); RED BLOOD CELL COUNT(AUTO) 3.29 MIL/uL (4.5-6.0); WHITE BLOOD COUNT (AUTO) 3.5 K/uL (4.3-11.0)
--- NOTE | 2018-03-23 06:41 | NUR ---
KIRK MS CLOSING NOTES PATIENT IN BED SLEEPING BUT EASILY AROUSABLE RESPIRATIONS EVEN AND UNLABORED WITH EQUAL RISE AND FALL OF CHEST, ON 02 2L VIA NC, LEFT WRIST #22 G INTACT AND PATENT, IVF RUNNING ORDERED, NO REDNESS, NO INFILTRATION PRESENT, WOUND CARE PROVIDED TO SACRAL, BACK , RIGHT HEEL, PERINEAL AND BUTTOCKS ORDERED WITH DRESSINGS CLEAN, DRY AND INTACT, PERINEAL CARE PROVIDE, CONTACT ISOLATION PRECAUTIONS RENDERED, BOTH HEELS OFFLOADED. PAIN MEDICATION EFFECTIVE, FLUIDS OFFERED AND TOLERATED WELL , REPOSITIONED THROUGHOUT SHIFT, SAFETY PRECAUTIONS IN PLACE, ALL NEEDS ATTENDED, CALL LIGHT KEPT WITHIN REACH, REMAINS COMFORTABLE , WILL CONTINUE TO MONITOR AND ENDORSE TO NEXT SHIFT. Addendum: 03/23/18 at 0730 by SAYRA CLAIER RN noted mg level 1.4 called , no call back yet , endorse to next shift for follow up
[2018-03-23] MEDS: IV NS 0.9% 1,000 ML IV PRN (06:58)
[2018-03-23 06:59] LABS: CREATININE 0.8 mg/dL (0.6-1.3); MAGNESIUM 1.4 mg/dL (1.8-2.4); PHOSPHORUS 3.4 mg/dL (2.5-4.9); POTASSIUM 3.8 mmol/L (3.5-5.1)
--- NOTE | 2018-03-23 07:30 | NUR ---
RN MS NOTES PT IN BED, ASLEEP, EASY TO AROUSE, ALERT AND VERBALLY RESPONSIVE, NOT IN DISTRESS, CALL LIGHT WITHIN REACH, KEPT WARM AND COMFORTABLE IN BED, IV FLUIDS INFUSING WELL.
[2018-03-23 08:00] VITALS: BP 105/70
[2018-03-23] MEDS: GABAPENTIN 300 MG CAPSULE PO SCH ×3 (08:39→17:20)
[2018-03-23] MEDS: MEMANTINE HCL 5 MG TABLET PO SCH (08:39)
[2018-03-23] MEDS: ENSURE ENLIVE CHOC 237 ML CAN PO SCH ×3 (08:39→17:21)
[2018-03-23] MEDS: CARBIDOPA/LEVA CR 25/100MG 1 TAB.SA PO SCH ×3 (08:39→17:20)
[2018-03-23] MEDS: PANTOPRAZOLE 40 MG TABLET.DR PO SCH (08:40)
[2018-03-23] MEDS: ESCITALOPRAM OXALATE (10 MG) 10 MG TABLET PO SCH (08:40)
[2018-03-23] MEDS: RIFAMPIN 300 MG CAPSULE PO SCH (08:40)
[2018-03-23] MEDS: ACIDOPHILUS/BULGARICUS 1 EACH TAB.CHEW PO SCH ×2 (08:40→17:20)
[2018-03-23] MEDS: POTASSIUM CHLORIDE 20 MEQ TAB.PRT.SR PO SCH (08:40)
[2018-03-23] MEDS: ASPIRIN 81 MG TAB.CHEW PO SCH (08:40)
[2018-03-23] MEDS: DAKINS QUARTER STRENGTH (0.125%) 480 ML BOTTLE TOP SCH (08:50)
[2018-03-23] MEDS: MUPIROCIN OINT 2% 22 GM TUBE SCH ×2 (08:50→21:44)
[2018-03-23 10:04] LABS: EOSINOPHILS % (MANUAL) 2 % (0-4); LYMPHOCYTES % (MANUAL) 19 % (16-48); MONOCYTES % (MANUAL) 22 % (0-11.0); NEUTROPHILS % (MANUAL) 57 (42-76)
[2018-03-23] MEDS: Magnesium 1GM/D5W 100ML PREMIX 100 ML IV SCH ×4 (10:50→14:25)
--- NOTE | 2018-03-23 13:11 | NUR ---
RN MS NOTES PT IN BED, AWAKE, ALERT, VERBALLY RESPONSIVE, ASSISTED WITH MEALS, DUE MEDS GIVEN ORDERED, TURNED AND REPOSITIONED Q2 HOURS, SEEN BY DR. CABRALES, PLAN OF CARE DISCUSSED WITH PT, VERBALIZED UNDERSTANDING.
--- NOTE | 2018-03-23 18:15 | NUR ---
RN MS NOTES PT IN BED, AWAKE, ALERT AND VERBALLY RESPONSIVE, NO COMPLAINT OF PAIN AT THIS TIME, RESPIRATIONS NORMAL, IV FLUIDS INFUSING WELL, ASSISTED WITH DINNER, TOLERATES CURRENT DIET WELL, PT HAD 1 TIME FORMED BM, NO NAUSEA OTR VOMITING, PM CARE PROVIDED, TURNED AND REPOSITIONED Q2 HOURS, ALL NEEDS ATTENDED.
--- NOTE | 2018-03-23 19:34 | NUR ---
MS/RN OPENING NOTES RECEIVED PATIENT IN BED, RESTING COMFORTABLY IN BED, BLIND REQUIRE ASSISTANCE, PROVIDED FLUIDS AND PROTEIN SHAKE ENSURE, ABLE TO TOLERATE HOB ELEVATE, IV ON LEFT FOREARM DISLODGE, WILL INSERT A NEW ONE. PATIENT REPORTED 7/10 PAIN IN THE LEGS, WILL PROVIDE NEEDED PAIN MEDICATION, CALL LIGHTS WITHIN REACH, BED LOCKED WILL MONITOR.
[2018-03-23 20:00] VITALS: BP 97/69
[2018-03-23] MEDS: ACETAMINOPHEN 325 MG TABLET PO PRN (20:00)
--- NOTE | 2018-03-23 20:17 | NUR ---
MS/RN NOTES TYLENOL WAS GIVEN TO PATIENT PER REQUEST FOR PAIN AT THIS TIME, IV TO RE INSERT LATER PER PATIETN REQUEST AFTER 2 ATTEMPTS FAILED BUT PATIETN ABLE TO DRINKL ENSURE MILK, AND TOLERATED FLUIDS WELL.
[2018-03-23] MEDS: ENOXAPARIN SODIUM 40 MG/0.4 ML DISP.SYRIN SQ SCH (21:46)
--- NOTE | 2018-03-23 22:24 | NUR ---
ms/rn notes PATIENT REQUESTED FOR PAIN MEDICATION, PRN DILAUDID 4MG PO GIVEN , PROVIDED FLUIDS AND ABLE TO DRINK MORE ENSURE,
--- NOTE | 2018-03-24 01:00 | NUR ---
ms/rn notes MD MORFIN MADE AWARE REGARDING IV NOT REINSERTED, PATIENT REFUSED AT THIS TIME AFTER FAILED ATTEMPT 2X, OFFERED AND PROVIDED WATER TO DRINK, ABLE TO DRINK ATLEAST 800 ML SINCE THE START OF SHIFT AND DRANK ENSURE.WILL TRY TO INSERT IN AM.
[2018-03-24] MEDS: VANCOMYCIN HCL 125 MG/2.5 ML ORAL.SUSP PO SCH ×4 (05:09→23:43)
[2018-03-24 06:17] LABS: BASOPHILS % (AUTO) 1.4 % (0.0-2.0); EOSINOPHILS % (AUTO) 6.9 % (0.0-6.0); HEMATOCRIT 31 % (39-51); HEMOGLOBIN 10.1 g/dL (13.5-17.5); LYMPHOCYTES % (AUTO) 29.9 % (20.0-44.0); MEAN CORPUSCULAR HGB CONC 32 g/dl (31.0-36.0); MEAN CORPUSCULAR VOLUME 89 fL (80-96); MONOCYTES # (AUTO) 0.6 /CMM (0.1-1.30); NEUTROPHILS # (AUTO) 1.5 /CMM (1.8-8.9); NEUTROPHILS % (AUTO) 43.8 % (43.0-81.0); PLATELET COUNT (AUTO) 138 /CMM (150-450); WHITE BLOOD COUNT (AUTO) 3.4 K/uL (4.3-11.0)
[2018-03-24 06:23] LABS: CALCIUM, SERUM 8.6 mg/dL (8.5-10.1); CREATININE 0.8 mg/dL (0.6-1.3); POTASSIUM 4.1 mmol/L (3.5-5.1)
--- NOTE | 2018-03-24 06:31 | NUR ---
322-2 MS/RN OPENING NOTES PATIETN ALERT, ORIENTED, RESTING COMFORTABLY, REQUIRE ASSISTANCE WITH FEEDING AND ADLS, ON PAIN MONITOIRNG, WITH SEMI FORMED BM, FREQUENT TURNING AND REPOSITON, UNABLE TO RE START A NEW IV AT THIS TIME, MD MADE AWARE BUT ABLE TO DRINK FLUIDS WITH ASSISTANCE. BM TWICE. WILL MONITOR.BED LOCKED, CALL LIGHTS WITHIN REACH.
[2018-03-24 07:12] LABS: EOSINOPHILS % (MANUAL) 7 % (0-4); LYMPHOCYTES % (MANUAL) 23 % (16-48); MONOCYTES % (MANUAL) 18 % (0-11.0); NEUTROPHILS % (MANUAL) 52 (42-76)
--- NOTE | 2018-03-24 07:15 | NUR ---
MS RN OPENING NOTES RECEIVED PATIENT AWAKE IN BED IN NO ACUTE SIGNS OF DISTRESS. HOB ELEVATED. A/O 2. VERBALLY RESPONSIVE, NO C/O PAIN OR DISCOMFORTS VOICED AT THIS TIME. ON 02 VIA N/C @ 2LPM, BREATHING EVEN AND UNLABORED. NO IV ACCESS NOTED, PATIENT APPARENTLY DRINKING WELL. SAFETY MEASURES IN PLACE. BED IN LOW LOCKED POSITION WITH SR UP X3. CALL LIGHT WITHIN REACH. WILL ANTICIPATE ALL NEEDS AND CONTINUE TO MONITOR ACCORDINGLY.
[2018-03-24] MEDS: PANTOPRAZOLE 40 MG TABLET.DR PO SCH (07:45)
[2018-03-24 08:00] VITALS: BP 102/69
[2018-03-24] MEDS: ENSURE ENLIVE CHOC 237 ML CAN PO SCH ×3 (08:30→16:49)
[2018-03-24] MEDS: RIFAMPIN 300 MG CAPSULE PO SCH (08:33)
[2018-03-24] MEDS: MEMANTINE HCL 5 MG TABLET PO SCH (08:34)
[2018-03-24] MEDS: POTASSIUM CHLORIDE 20 MEQ TAB.PRT.SR PO SCH (08:34)
[2018-03-24] MEDS: CARBIDOPA/LEVA CR 25/100MG 1 TAB.SA PO SCH ×3 (08:34→16:50)
[2018-03-24] MEDS: ACIDOPHILUS/BULGARICUS 1 EACH TAB.CHEW PO SCH ×2 (08:34→16:50)
[2018-03-24] MEDS: ESCITALOPRAM OXALATE (10 MG) 10 MG TABLET PO SCH (08:34)
[2018-03-24] MEDS: ASPIRIN 81 MG TAB.CHEW PO SCH (08:34)
[2018-03-24] MEDS: GABAPENTIN 300 MG CAPSULE PO SCH ×3 (08:34→16:50)
[2018-03-24] MEDS: MUPIROCIN OINT 2% 22 GM TUBE SCH ×2 (08:35→20:48)
[2018-03-24] MEDS: DAKINS QUARTER STRENGTH (0.125%) 480 ML BOTTLE TOP SCH (08:35)
--- NOTE | 2018-03-24 09:47 | NUR ---
RN NOTES TRIED TO INSERT IV ACCESS AND WAS ABLE TO INSERT AT LEFT FOREARM G#22, SECURED WITH TAPE AND DATED. WILL CONTINUE TO MONITOR.
--- NOTE | 2018-03-24 09:49 | NUR ---
ADDENDUM: IVF OF NS @ 100ML/HR RESUMED VIA PIV ON LFA. WILL CONTINUE TO MONITOR
[2018-03-24] MEDS: HYDROMORPHONE HCL 2 MG TABLET PO PRN ×2 (10:17→22:38)
--- NOTE | 2018-03-24 10:21 | NUR ---
RN NOTES/ PAIN MANAGEMENT PATIENT C/O ACHING PAIN ON BOTH LEGS WITH SCALE OF 8/10, PRN DILAUDID 4MG PO GIVEN AT 1017. WILL CONTINUE TO MONITOR AND REASSESS PT.
[2018-03-24] MEDS: ACETAMINOPHEN 325 MG TABLET PO PRN (12:06)
[2018-03-24] MEDS: IV NS 0.9% 1,000 ML IV PRN (13:21)
[2018-03-24 16:00] VITALS: BP 103/65
[2018-03-24] MEDS: REVLIMID 5 MG PO SCH (17:43)
--- NOTE | 2018-03-24 18:43 | NUR ---
MS RN CLOSING NOTES PATIENT IN BED RESTING AT MODERATE HIGH BACKREST POSITION. A/O X2-3. BLIND ON BOTH EYES AND VERBALLY RESPONSIVE. ON 02 VIA N/C @ 2LPM, BREATHING EVEN WITH NO ACUTE RESPIRATORY DISTRESS NOTED. IV ACCESS ON LFA G#22 INTACT AND PATENT, IVF OF NS @ 100ML/HR INFUSING WELL, NO S/S OF INFILTRATIONS NOTED. PT TURNED AND REPOSITIONED IN BED Q 2HRS AND PRN. KEPT CLEAN, DRY AND COMFORTABLE. ALL SAFETY MEASURES KEPT IN PLACE. BED IN LOW LOCKED POSITION WITH SR UP X3. CALL LIGHT WITHIN REACH. ALL NEEDS AND CARE PROVIDED WELL. WILL ENDORSE TO PLATE SETTER NURSE FOR BALA.
--- NOTE | 2018-03-24 19:45 | NUR ---
MS/RN OPENING NOTES PT RECEIVED AWAKE, RESTING COMFORTABLY IN BED. BILATERAL BLINDNESS. ON ROOM AIR, BREATHING EVEN AND UNLABORED. DENIES SOB AND PAIN AT THIS TIME. IV TO LFA PATENT AND INTACT RUNNING IVF ORDERED. BED IN LOW/LOCKED POSITION WITH CALL LIGHT IN REACH. SIDE RAILS UP X3 AND BED ALARM ON FOR SAFETY. HOB ELEVATED. WILL CONTINUE TO MONITOR
[2018-03-24 20:00] VITALS: BP 92/63
[2018-03-24] MEDS: ENOXAPARIN SODIUM 40 MG/0.4 ML DISP.SYRIN SQ SCH (20:47)
[2018-03-25] MEDS: IV NS 0.9% 1,000 ML IV PRN ×3 (02:22→23:02)
[2018-03-25] MEDS: PANTOPRAZOLE 40 MG TABLET.DR PO SCH (06:32)
[2018-03-25] MEDS: VANCOMYCIN HCL 125 MG/2.5 ML ORAL.SUSP PO SCH ×3 (06:32→17:23)
[2018-03-25 06:40] VITALS: BP 111/68
[2018-03-25] MEDS: HYDROMORPHONE HCL 2 MG TABLET PO PRN ×2 (06:45→20:06)
--- NOTE | 2018-03-25 06:46 | NUR ---
MS/RN CLOSING NOTES PT AWAKE, HOB SEMI FOWLERS. ON ROOM AIR, BREATHING EVEN AND UNLABORED. DENIES SOB. NOTES 12/03 TO BILATERAL LEGS, ADMINISTERED PRN DILAUDID TAB ORDERED. BP 111/68, HR 129, O2 94% ON RA. IV TO LFA PATENT AND INTACT RUNNING IVF ORDERED. WITH 3 SOFT BM, NO DIARRHEA. TURNED/REPOSITIONED Q2H. HEELS OFFLOADED. WOUND CARE PROVIDED ORDERED. BED REMAINS IN LOW/LOCKED POSITION WITH CALL LIGHT IN REACH, BILATERAL SIDE RAILS UP AND BED ALARM ON FOR SAFETY. WILL ENDORSE TO DAY SHIFT RN BALA.
[2018-03-25 07:11] LABS: CALCIUM, SERUM 8.8 mg/dL (8.5-10.1); CREATININE 0.8 mg/dL (0.6-1.3); POTASSIUM 3.8 mmol/L (3.5-5.1)
--- NOTE | 2018-03-25 07:15 | NUR ---
RN OPENING NOTES RECEIVED PATEINT AWAKE, RESTING COMFORTABLY IN BED. BILATERAL BLINDNESS. ON ROOM AIR, BREATHING EVEN AND UNLABORED. DENIES SOB AND PAIN AT THIS TIME. IV TO LFA PATENT AND INTACT RUNNING IVF ORDERED. BED IN LOW/LOCKED POSITION WITH CALL LIGHT IN REACH. SIDE RAILS UP X3 AND BED ALARM ON FOR SAFETY. HOB ELEVATED. WILL CONTINUE TO MONITOR ACCORDINGLY.
[2018-03-25 08:00] VITALS: BP 107/70
[2018-03-25] MEDS: ENSURE ENLIVE CHOC 237 ML CAN PO SCH ×3 (09:24→17:33)
[2018-03-25] MEDS: ACIDOPHILUS/BULGARICUS 1 EACH TAB.CHEW PO SCH ×2 (09:24→17:20)
[2018-03-25] MEDS: ASPIRIN 81 MG TAB.CHEW PO SCH (09:24)
[2018-03-25] MEDS: RIFAMPIN 300 MG CAPSULE PO SCH (09:25)
[2018-03-25] MEDS: MEMANTINE HCL 5 MG TABLET PO SCH (09:25)
[2018-03-25] MEDS: ESCITALOPRAM OXALATE (10 MG) 10 MG TABLET PO SCH (09:25)
[2018-03-25] MEDS: GABAPENTIN 300 MG CAPSULE PO SCH ×3 (09:26→17:20)
[2018-03-25] MEDS: POTASSIUM CHLORIDE 20 MEQ TAB.PRT.SR PO SCH (09:26)
[2018-03-25] MEDS: CARBIDOPA/LEVA CR 25/100MG 1 TAB.SA PO SCH ×3 (09:26→17:20)
[2018-03-25] MEDS: DAKINS QUARTER STRENGTH (0.125%) 480 ML BOTTLE TOP SCH (09:30)
[2018-03-25] MEDS: MUPIROCIN OINT 2% 22 GM TUBE SCH ×2 (09:32→20:10)
--- NOTE | 2018-03-25 15:05 | NUR ---
RN NOTES CAREGIVER AT BEDSIDE CLEANING THE PATIENT. OFFERED HELP BUT SHE REFUSED. PER CAREGIVER, "ITS OK, I GOT TIME".
--- NOTE | 2018-03-25 15:06 | NUR ---
WOUND CARE RENDERED
[2018-03-25 16:00] VITALS: BP 107/67
[2018-03-25] MEDS: RIFAXIMIN 200 MG TABLET PO SCH (17:22)
--- NOTE | 2018-03-25 18:55 | NUR ---
RN CLOSING NOTES PATIENT IN STABLE CONDITION. ALL NEEDS ATTENDED AND PROVIDED. ALL DUE MEDICATIONS GIVEN ORDERED. KEPT PATIENT SAFE AND COMFORTABLE. TURNED AND REPOSITIONED EVERY 2HRS NEEDED. BED IN LOW/LOCKED POSITION, SIDERAILS UPX2, CALL LIGHT IN REACH. WILL ENDORSED TO NIGHT RN FOR BALA.
--- NOTE | 2018-03-25 19:59 | NUR ---
RN MS OPENING NOTES RECEIVED PT IN BED, AWAKE ALERT ORIENTEDX 3, BLIND ON BOTH EYES VERBALLY RESPONSIVE AND ABLE TO MAKE NEEDS KNOWN. BREATHING EVEN AND UNLABORED ON ROOM AIR. NO COMPLAINT OF PAIN OR DISCOMFORT AT THIS TIME. IV ACCESS ON THE L FA #22 WITH NS @100ML/HR. ON CONTACT ISOLATION FOR CDIFF, AND MRSA NARES. BED IN LOWEST LOCKED POSITION, CALL LIGHT WITHIN REACH AT ALL TIMES. WILL CONTINUE TO MONITOR
[2018-03-25 20:00] VITALS: BP 94/60
[2018-03-25] MEDS: ENOXAPARIN SODIUM 40 MG/0.4 ML DISP.SYRIN SQ SCH (20:07)
[2018-03-26] MEDS: VANCOMYCIN HCL 125 MG/2.5 ML ORAL.SUSP PO SCH ×5 (00:26→23:22)
[2018-03-26] MEDS: HYDROMORPHONE HCL 2 MG TABLET PO PRN (05:31)
--- NOTE | 2018-03-26 06:40 | NUR ---
RN MS CLOSING NOTES PT REMAINS IN BED, AWAKE ALERT ORIENTED X2-3, VREABLLY RESPONSIVE AND ABLE TO MAKE NEEDS KNOWN. BREATHING EVEN ADN UNLABORED ON RA, NO SOB, COUGH OR CONGESTION. NO COMPLAINT OF PAIN OR DISCOMFORT AT THE MOMENT. IV ACCESS ON THE L FA ##22G WITH NS @100ML/HR. CONTINUES ON ISOLATION FOR S-DIFF ANF MRSA NARES, 4 BMS TOTAL DURING SHIFT, SOFT AND FORMED, NO DIARRHEA. BED IN LOWES LOCKED POSITION, CALL LIGHT WITHIN REACH AT ALL TIMES, WILL ENDORSE TO DAY NURSE FOR BALA
[2018-03-26 07:22] LABS: BASOPHILS # (AUTO) 0.1 /CMM (0.0-0.2); BASOPHILS % (AUTO) 1.7 % (0.0-2.0); HEMATOCRIT 32 % (39-51); HEMOGLOBIN 10.4 g/dL (13.5-17.5); LYMPHOCYTES # (AUTO) 0.8 /CMM (0.8-4.8); LYMPHOCYTES % (AUTO) 21.8 % (20.0-44.0); MEAN CORPUSCULAR HGB CONC 32 g/dl (31.0-36.0); MEAN CORPUSCULAR VOLUME 90 fL (80-96); MONOCYTES # (AUTO) 0.3 /CMM (0.1-1.30); MONOCYTES % (AUTO) 8.7 % (2.0-12.0); NEUTROPHILS # (AUTO) 2.4 /CMM (1.8-8.9); NEUTROPHILS % (AUTO) 63.8 % (43.0-81.0); PLATELET COUNT (AUTO) 177 /CMM (150-450); RED BLOOD CELL COUNT(AUTO) 3.56 MIL/uL (4.5-6.0); WHITE BLOOD COUNT (AUTO) 3.8 K/uL (4.3-11.0)
[2018-03-26 07:48] LABS: CREATININE 0.9 mg/dL (0.6-1.3); MAGNESIUM 1.5 mg/dL (1.8-2.4); PHOSPHORUS 4.8 mg/dL (2.5-4.9); POTASSIUM 4.2 mmol/L (3.5-5.1)
--- NOTE | 2018-03-26 07:59 | NUR ---
MS RN Opening Note Received patient awake, resting in bed. Patient alert and oriented x 2-3, able to make needs known. Respirations even and unlabored on room air, saturating at 98%. Peripheral IV access to the left forearm 22 gauge, intact, patent and running NS at 100 mL. Isolation precautions in place for MRSA nares and C-diff. Safety and Fall precautions in place: bed in lowest and locked position, side rails up x 2, bed alarm on, call light within reach. Reviewed safety measures and plan of care with patient, verbalized understanding. Will continue to monitor and intervene as needed.
[2018-03-26 08:00] VITALS: BP 108/71
[2018-03-26] MEDS: ENSURE ENLIVE CHOC 237 ML CAN PO SCH ×3 (08:02→17:06)
[2018-03-26] MEDS: MUPIROCIN OINT 2% 22 GM TUBE SCH (08:04)
[2018-03-26] MEDS: PANTOPRAZOLE 40 MG TABLET.DR PO SCH (08:17)
[2018-03-26] MEDS: ACIDOPHILUS/BULGARICUS 1 EACH TAB.CHEW PO SCH ×2 (08:18→17:13)
[2018-03-26] MEDS: MEMANTINE HCL 5 MG TABLET PO SCH (08:18)
[2018-03-26] MEDS: DAKINS QUARTER STRENGTH (0.125%) 480 ML BOTTLE TOP SCH (08:18)
[2018-03-26] MEDS: ASPIRIN 81 MG TAB.CHEW PO SCH (08:18)
[2018-03-26] MEDS: POTASSIUM CHLORIDE 20 MEQ TAB.PRT.SR PO SCH (08:18)
[2018-03-26] MEDS: GABAPENTIN 300 MG CAPSULE PO SCH ×3 (08:18→17:13)
[2018-03-26] MEDS: ESCITALOPRAM OXALATE (10 MG) 10 MG TABLET PO SCH (08:18)
[2018-03-26] MEDS: CARBIDOPA/LEVA CR 25/100MG 1 TAB.SA PO SCH ×3 (08:18→17:13)
[2018-03-26] MEDS: RIFAXIMIN 200 MG TABLET PO SCH ×3 (08:19→17:06)
[2018-03-26] MEDS: Magnesium 1GM/D5W 100ML PREMIX 100 ML IV SCH ×2 (13:52→15:15)
[2018-03-26] MEDS: IV NS 0.9% 1,000 ML IV PRN (15:21)
[2018-03-26 16:00] VITALS: BP 97/64
[2018-03-26] MEDS ORDERED: VANC125C11 PO (16:29)
[2018-03-26] MEDS ORDERED: IV NS 0.9% 500 ML IV ONE (16:30)
[2018-03-26] MEDS: REVLIMID 5 MG PO SCH (17:13)
--- NOTE | 2018-03-26 19:00 | NUR ---
MS RN Closing Note Patient currently awake, resting in bed. Patient alert and oriented x 3, able to make needs known verbally. Blind in both eyes. Respirations even and unlabored on room air, saturating at 98%. Peripheral IV access to the left forearm 22 gauge, intact, patent and running NS at 100 mL. Isolation precautions in place for MRSA nares and C-diff. No loose stool this shift. All due medications given as ordered. Wound care rendered as ordered. Safety and Fall precautions in place: bed in lowest and locked position, side rails up x 2, bed alarm on, call light within reach. Reviewed safety measures and plan of care with patient and visitors, verbalized understanding. Will endorse to night club manager RN for continuity of care.
--- NOTE | 2018-03-26 19:20 | NUR ---
RN MS OPENING NOTES RECEIVED PT IN BED, AWAKE ALERT ORIENTED X 3, BLIND ON BOTH EYES VERBALLY RESPONSIVE AND ABLE TO MAKE NEEDS KNOWN. BREATHING EVEN AND UNLABORED ON ROOM AIR. NO COMPLAINT OF PAIN OR DISCOMFORT AT THIS TIME. IV ACCESS ON THE L FA #22 WITH NS @100ML/HR. ON CONTACT ISOLATION FOR C-DIFF, AND MRSA NARES. BED IN LOWEST LOCKED POSITION, CALL LIGHT WITHIN REACH AT ALL TIMES. WILL CONTINUE TO MONITOR
[2018-03-26 20:00] VITALS: BP 106/72
[2018-03-26] MEDS: ENOXAPARIN SODIUM 40 MG/0.4 ML DISP.SYRIN SQ SCH (20:40)
[2018-03-27] MEDS: IV NS 0.9% 1,000 ML IV PRN ×2 (01:58→17:14)
[2018-03-27] MEDS: VANCOMYCIN HCL 125 MG/2.5 ML ORAL.SUSP PO SCH ×3 (05:51→17:13)
--- NOTE | 2018-03-27 06:14 | NUR ---
RN MS CLOSING NOTES PT REMAINS IN BED, AWAKE ALERT ORIENTED X2-3, VERBALLY RESPONSIVE AND ABLE TO MAKE NEEDS KNOWN. BREATHING EVEN AND UNLABORED ON RA, NO SOB, COUGH OR CONGESTION. NO COMPLAINT OF PAIN OR DISCOMFORT AT THE MOMENT. IV ACCESS ON THE L FA ##22G WITH NS @100ML/HR. CONTINUES ON ISOLATION FOR S-DIFF AND MRSA NARES, 3 BMS TOTAL DURING SHIFT, SOFT AND FORMED, NO DIARRHEA. BED IN LOWEST LOCKED POSITION, CALL LIGHT WITHIN REACH AT ALL TIMES, WILL ENDORSE TO DAY NURSE FOR BALA
[2018-03-27 07:10] LABS: BASOPHILS # (AUTO) 0.1 /CMM (0.0-0.2); BASOPHILS % (AUTO) 1.4 % (0.0-2.0); EOSINOPHILS % (AUTO) 3.1 % (0.0-6.0); HEMATOCRIT 31 % (39-51); HEMOGLOBIN 9.8 g/dL (13.5-17.5); LYMPHOCYTES # (AUTO) 1.3 /CMM (0.8-4.8); LYMPHOCYTES % (AUTO) 30.6 % (20.0-44.0); MEAN CORPUSCULAR HGB CONC 32 g/dl (31.0-36.0); MEAN CORPUSCULAR VOLUME 90 fL (80-96); MONOCYTES # (AUTO) 0.4 /CMM (0.1-1.30); MONOCYTES % (AUTO) 9.6 % (2.0-12.0); NEUTROPHILS # (AUTO) 2.3 /CMM (1.8-8.9); NEUTROPHILS % (AUTO) 55.3 % (43.0-81.0); PLATELET COUNT (AUTO) 171 /CMM (150-450); RED BLOOD CELL COUNT(AUTO) 3.39 MIL/uL (4.5-6.0); WHITE BLOOD COUNT (AUTO) 4.1 K/uL (4.3-11.0)
[2018-03-27 07:11] LABS: CALCIUM, SERUM 8.9 mg/dL (8.5-10.1); CREATININE 0.9 mg/dL (0.6-1.3); MAGNESIUM 1.9 mg/dL (1.8-2.4); PHOSPHORUS 3.1 mg/dL (2.5-4.9); POTASSIUM 3.8 mmol/L (3.5-5.1)
[2018-03-27 07:54] VITALS: BP 100/65
--- NOTE | 2018-03-27 07:55 | NUR ---
MS RN Opening Note Received patient awake, resting in bed. Patient alert and oriented x 3, able to make needs known verbally. Patient is blind in both eyes. Respirations even and unlabored on room air, saturating at 96%. HR tachycardia at 120. Peripheral IV access to the left forearm 22 gauge, intact, patent and running NS at 100 mL. Isolation precautions in place for MRSA nares and C-diff, no loose stool overnight. Safety and Fall precautions in place: bed in lowest and locked position, side rails up x 2, bed alarm on, call light within reach. Reviewed safety measures and plan of care with patient, verbalized understanding. Will continue to monitor and intervene as needed.
[2018-03-27 08:00] VITALS: BP 100/65
[2018-03-27] MEDS: CARBIDOPA/LEVA CR 25/100MG 1 TAB.SA PO SCH ×3 (08:17→16:41)
[2018-03-27] MEDS: POTASSIUM CHLORIDE 20 MEQ TAB.PRT.SR PO SCH (08:17)
[2018-03-27] MEDS: ACIDOPHILUS/BULGARICUS 1 EACH TAB.CHEW PO SCH ×2 (08:17→16:41)
[2018-03-27] MEDS: ESCITALOPRAM OXALATE (10 MG) 10 MG TABLET PO SCH (08:17)
[2018-03-27] MEDS: ASPIRIN 81 MG TAB.CHEW PO SCH (08:17)
[2018-03-27] MEDS: GABAPENTIN 300 MG CAPSULE PO SCH ×3 (08:17→16:41)
[2018-03-27] MEDS: MEMANTINE HCL 5 MG TABLET PO SCH (08:17)
[2018-03-27] MEDS: PANTOPRAZOLE 40 MG TABLET.DR PO SCH (08:17)
[2018-03-27] MEDS: DAKINS QUARTER STRENGTH (0.125%) 480 ML BOTTLE TOP SCH (08:18)
[2018-03-27] MEDS: ENSURE ENLIVE CHOC 237 ML CAN PO SCH ×3 (08:18→16:41)
[2018-03-27] MEDS: RIFAXIMIN 200 MG TABLET PO SCH ×3 (08:19→16:41)
[2018-03-27] MEDS: HYDROMORPHONE HCL 2 MG TABLET PO PRN ×2 (12:17→20:34)
[2018-03-27] MEDS ORDERED: IV NS 0.9% 1,000 ML IV PRN (12:30)
--- NOTE | 2018-03-27 13:00 | NUR ---
Wound care rendered as ordered.
[2018-03-27 16:00] VITALS: BP 99/72
--- NOTE | 2018-03-27 19:00 | NUR ---
MS RN Closing Note Patient currently asleep, resting in bed, easily arousable to name. Patient alert and oriented x 3, able to make needs known verbally. Patient is blind in both eyes. Respirations even and unlabored on room air, saturating at 96%. HR tachycardia at 114, monitored this shift. Peripheral IV access to the left forearm 22 gauge, intact, patent and running NS at 150 mL/hr. 1000 mL IV bolus of NS given as ordered. Isolation precautions in place for MRSA nares and C-diff, no loose stool this shift, soft BM x3. Safety and Fall precautions in place: bed in lowest and locked position, side rails up x 2, bed alarm on, call light within reach. Reviewed safety measures and plan of care with patient, verbalized understanding. Will endorse to verification manager RN for continuity of care.
--- NOTE | 2018-03-27 19:05 | NUR ---
RN MS OPENING NOTES RECEIVED PATIENT IN BED AWAKE ALERT AND ORIENTED X 23,ABLE TO MAKE SIMPLE NEEDS KNOWN, DENIES PAIN AT THIS TIME, RESPIRATIONS EVEN AND UNLABORED WITH EQUAL RISE AND FALL OF CHEST, IV SITE TO LEFT FA #22 G INTACT AND PATENT, IVF RUNNING ORDERED, NO REDNESS, NO INFILTRATION PRESENT, ORIENTED TO STAFF AND CALL LIGHT AND KEPT WITHIN REACH, LOW BED AND LOCKED, BED ALARM IN PLACE, HEELS OFFLOADED FLUIDS OFFERED AND TAKEN TOLERATED, ALL NEEDS ATTENDED AT THIS TIME, WILL CONTINUE TO MONITOR.
[2018-03-27 20:00] VITALS: BP 98/63
--- NOTE | 2018-03-27 20:34 | NUR ---
RN MS NOTES PATIENT COMPLAINT OF PAIN TO BOTH LOWER LEGS 11/02 REQUESTING FOR PAIN MEDICATION VITAL SIGN WNL B/P 96/63,129,20,98.3,98% DILAUDID PO PRN ORDERED OFFERED PATIENT AGREED. GIVEN ORDERED WILL CONTINUE TO MONITOR FOR EFFECTIVENESS.
[2018-03-27] MEDS: ENOXAPARIN SODIUM 40 MG/0.4 ML DISP.SYRIN SQ SCH (20:36)
[2018-03-27] MEDS ORDERED: KEY,NONCONTROL,TO KEEP IN PYXI 1 EA MC ONE (21:32)
[2018-03-28] MEDS: VANCOMYCIN HCL 125 MG/2.5 ML ORAL.SUSP PO SCH ×5 (01:11→23:13)
[2018-03-28] MEDS: IV NS 0.9% 1,000 ML IV PRN ×3 (02:31→17:01)
[2018-03-28] MEDS: HYDROMORPHONE HCL 2 MG TABLET PO PRN ×2 (03:52→09:28)
--- NOTE | 2018-03-28 03:52 | NUR ---
rn ms notes patient complaint of pain to both lower legs 8-12/03 requesting for pain medication dilaudid offered patient agreed. vs wnl 101/62,122,18,97% dilaudid prn 4mg as ordered given will continue to monitor for effectiveness.
--- NOTE | 2018-03-28 06:38 | NUR ---
RN MS CLOSING NOTES PATIENT IN BED AWAKE ALERT AND ORIENTED X 2-3,ABLE TO MAKE SIMPLE NEEDS KNOWN, DENIES PAIN AT THIS TIME, RESPIRATIONS EVEN AND UNLABORED WITH EQUAL RISE AND FALL OF CHEST, IV SITE TO LEFT FA #22 G INTACT AND PATENT, IVF RUNNING ORDERED, NO REDNESS, NO INFILTRATION PRESENT,CALL LIGHT AND KEPT WITHIN REACH, WOUND CARE PROVIDED ORDERED OFFLOADED AFFECTED WOUND SITES AND HEELS AND FREQUENT REPOSITIONING RENDERED, FLUID OFFERED AND TOLERATES LOW BED AND LOCKED, BED ALARM IN PLACE, REMAINS COMFORTABLE, ALL NEEDS ATTENDED AT THIS TIME, WILL CONTINUE TO MONITOR AND ENDORSE TO NEXT SHIFT.
[2018-03-28 08:00] VITALS: BP 103/71
[2018-03-28] MEDS: ACIDOPHILUS/BULGARICUS 1 EACH TAB.CHEW PO SCH ×2 (09:23→16:48)
[2018-03-28] MEDS: ESCITALOPRAM OXALATE (10 MG) 10 MG TABLET PO SCH (09:23)
[2018-03-28] MEDS: RIFAXIMIN 200 MG TABLET PO SCH ×3 (09:23→16:49)
[2018-03-28] MEDS: GABAPENTIN 300 MG CAPSULE PO SCH ×3 (09:23→16:49)
[2018-03-28] MEDS: MEMANTINE HCL 5 MG TABLET PO SCH (09:23)
[2018-03-28] MEDS: CARBIDOPA/LEVA CR 25/100MG 1 TAB.SA PO SCH ×3 (09:23→16:49)
[2018-03-28] MEDS: ASPIRIN 81 MG TAB.CHEW PO SCH (09:23)
[2018-03-28] MEDS: PANTOPRAZOLE 40 MG TABLET.DR PO SCH (09:23)
[2018-03-28] MEDS: POTASSIUM CHLORIDE 20 MEQ TAB.PRT.SR PO SCH (09:23)
[2018-03-28] MEDS: ENSURE ENLIVE CHOC 237 ML CAN PO SCH ×3 (09:26→16:49)
[2018-03-28] MEDS: DAKINS QUARTER STRENGTH (0.125%) 480 ML BOTTLE TOP SCH (09:41)
[2018-03-28] MEDS ORDERED: IV NS 0.9% 1,000 ML IV PRN ×2 (10:30→14:00)
[2018-03-28 11:52] LABS: BASOPHILS # (AUTO) 0.1 /CMM (0.0-0.2); EOSINOPHILS % (AUTO) 1.6 % (0.0-6.0); HEMATOCRIT 29 % (39-51); HEMOGLOBIN 9.1 g/dL (13.5-17.5); LYMPHOCYTES % (AUTO) 17.2 % (20.0-44.0); MEAN CORPUSCULAR HGB CONC 32 g/dl (31.0-36.0); MEAN CORPUSCULAR VOLUME 91 fL (80-96); MONOCYTES # (AUTO) 0.4 /CMM (0.1-1.30); MONOCYTES % (AUTO) 7.1 % (2.0-12.0); NEUTROPHILS # (AUTO) 4.2 /CMM (1.8-8.9); NEUTROPHILS % (AUTO) 73.1 % (43.0-81.0); PLATELET COUNT (AUTO) 174 /CMM (150-450); RED BLOOD CELL COUNT(AUTO) 3.14 MIL/uL (4.5-6.0); WHITE BLOOD COUNT (AUTO) 5.8 K/uL (4.3-11.0)
[2018-03-28 11:54] LABS: ALBUMIN 1.9 g/dL (3.4-5.0); CALCIUM, SERUM 8.6 mg/dL (8.5-10.1); CREATININE 0.9 mg/dL (0.6-1.3); POTASSIUM 3.8 mmol/L (3.5-5.1)
[2018-03-28 16:00] VITALS: BP 99/65
[2018-03-28] MEDS: REVLIMID 5 MG PO SCH (17:01)
--- NOTE | 2018-03-28 18:37 | NUR ---
RN NOTES PATIENT A/OX2-3, WOUND TREATMENT RENDERED, TURNED AND REPOSITIONED EVERY 2 HOURS, MILAN. HEELS OFFLOADED, DENIES PAIN AT THIS TIME, NO APPARENT DISTRESS NOTED, AFEBRILE, IVF INFUSING AND TOLERATING WELL, GIVEN 2L OF NS TOTAL BOLUSES THIS SHIFT. PATENT AND FLUSHES WELL, CALL LIGHT WITHIN REACH, WILL ENDORSE TO PHYSICAL THERAPIST ASSISTANT FOR BALA.
[2018-03-28 20:00] VITALS: BP 107/70
--- NOTE | 2018-03-28 20:00 | NUR ---
MS RN NOTES RECEIVED PATIENT AWAKE IN BED WITH NO DISTRESS NOTED. CALL LIGHT WITHIN REACH. PERIPHERAL LINE INTACT AND PATENT. NO C/O PAIN OR DISCOMFORT. CONTACT ISOLATION OBSERVED AND MAINTAINED AT ALL TIMES. BED IN LOW LOCK SETTING. ALL BELONGINGS KEPT NEAR BEDSIDE. WILL CONTINUE TO MONITOR.
[2018-03-28] MEDS: ENOXAPARIN SODIUM 40 MG/0.4 ML DISP.SYRIN SQ SCH (20:38)
[2018-03-28] MEDS ORDERED: ALBUMIN 25% 25 GM in PREMIX 1 EA IV SCH (21:00)
[2018-03-28] MEDS: ALBUMIN 25% 25 GM in PREMIX 1 EA IV SCH ×2 (21:44→23:13)
[2018-03-29] MEDS: VANCOMYCIN HCL 125 MG/2.5 ML ORAL.SUSP PO SCH ×4 (06:40→23:54)
--- NOTE | 2018-03-29 06:47 | NUR ---
MS RN CLOSING NOTES PATIENT ASLEEP IN BED WITH NO DISTRESS NOTED. CALL LIGHT WITHIN REACH. CONTACT ISOLATION OBSERVED AND MAINTAINED AT ALL TIMES. ALL DUE MEDS GIVEN ORDERED WITH NO ASE NOTED. PERIPHERAL LINE INTACT AND PATENT. NO C/O PAIN OR DISCOMFORT. BED IN LOW LOCK SETTING. ALL BELONGINGS KEPT NEAR BEDSIDE. WILL ENDORSE TO ONCOMING SHIFT.
[2018-03-29 07:33] LABS: BASOPHILS % (AUTO) 0.8 % (0.0-2.0); EOSINOPHILS % (AUTO) 0.9 % (0.0-6.0); HEMATOCRIT 28 % (39-51); HEMOGLOBIN 8.9 g/dL (13.5-17.5); LYMPHOCYTES # (AUTO) 1.2 /CMM (0.8-4.8); LYMPHOCYTES % (AUTO) 19.8 % (20.0-44.0); MEAN CORPUSCULAR HGB CONC 32 g/dl (31.0-36.0); MEAN CORPUSCULAR VOLUME 93 fL (80-96); MONOCYTES # (AUTO) 0.5 /CMM (0.1-1.30); MONOCYTES % (AUTO) 7.8 % (2.0-12.0); NEUTROPHILS # (AUTO) 4.1 /CMM (1.8-8.9); NEUTROPHILS % (AUTO) 70.7 % (43.0-81.0); PLATELET COUNT (AUTO) 153 /CMM (150-450); RED BLOOD CELL COUNT(AUTO) 3.02 MIL/uL (4.5-6.0); WHITE BLOOD COUNT (AUTO) 5.9 K/uL (4.3-11.0)
[2018-03-29 08:00] VITALS: BP 118/80
[2018-03-29] MEDS: ACIDOPHILUS/BULGARICUS 1 EACH TAB.CHEW PO SCH ×2 (08:10→17:22)
[2018-03-29] MEDS: POTASSIUM CHLORIDE 20 MEQ TAB.PRT.SR PO SCH (08:10)
[2018-03-29] MEDS: RIFAXIMIN 200 MG TABLET PO SCH ×3 (08:10→17:22)
[2018-03-29] MEDS: ENSURE ENLIVE CHOC 237 ML CAN PO SCH ×3 (08:10→17:30)
[2018-03-29] MEDS: GABAPENTIN 300 MG CAPSULE PO SCH ×3 (08:11→17:22)
[2018-03-29] MEDS: ESCITALOPRAM OXALATE (10 MG) 10 MG TABLET PO SCH (08:11)
[2018-03-29] MEDS: PANTOPRAZOLE 40 MG TABLET.DR PO SCH (08:11)
[2018-03-29] MEDS: CARBIDOPA/LEVA CR 25/100MG 1 TAB.SA PO SCH ×3 (08:11→17:22)
[2018-03-29] MEDS: MEMANTINE HCL 5 MG TABLET PO SCH (08:11)
[2018-03-29] MEDS: DAKINS QUARTER STRENGTH (0.125%) 480 ML BOTTLE TOP SCH (08:12)
[2018-03-29] MEDS: ASPIRIN 81 MG TAB.CHEW PO SCH (08:12)
[2018-03-29] MEDS: IV NS 0.9% 1,000 ML IV PRN ×2 (08:12→23:54)
[2018-03-29 08:30] LABS: CALCIUM, SERUM 9.2 mg/dL (8.5-10.1); CREATININE 0.9 mg/dL (0.6-1.3); MAGNESIUM 1.5 mg/dL (1.8-2.4); PHOSPHORUS 2.9 mg/dL (2.5-4.9); POTASSIUM 3.7 mmol/L (3.5-5.1)
[2018-03-29] MEDS ORDERED: Magnesium 1GM/D5W 100ML PREMIX 100 ML IV SCH ×2 (09:30→10:30)
[2018-03-29] MEDS ORDERED: IV NS 0.9% 1,000 ML IV PRN (09:30)
[2018-03-29] MEDS: HYDROMORPHONE HCL 2 MG TABLET PO PRN (09:42)
[2018-03-29 16:00] VITALS: BP 94/58
--- NOTE | 2018-03-29 18:28 | NUR ---
MS RN CLOSING NOTES PATIENT IS IN STABLE CONDITION. IN NO APPARENT DISTRESS. BEDSIDE RAILS ARE UPX2. BED IS LOCKED AND LOWERED. CALL LIGHT IS WITHIN REACH. IV LINE IS INTACT AND PATENT. WILL ENDORSE CARE TO ENDBANDER NURSE FOR BALA.
--- NOTE | 2018-03-29 19:30 | NUR ---
RECEIVED PATIENT IN BED ASLEEP, EASILY AROUSABLE; BLIND. AO X 2, ABLE TO MAKE NEEDS KNOWN. NO ACUTE DISTRESS NOTED. DENIES ANY PAIN AT THIS TIME. IV SITE PATENT, INTACT. SAFETY REMINDERS GIVEN. CONTACT ISOLATION FOR CDIFF IN STOOL AND MRSA NARES MAINTAINED. ON LOW BED WITH BILATERAL UPPER SIDE RAILS UP. CALL ATKINS WITHIN EASY REACH. WILL CONTINUE TO MONITOR.
[2018-03-29 20:00] VITALS: BP 99/54
[2018-03-29 20:06] VITALS: BP 99/54
[2018-03-29] MEDS: ENOXAPARIN SODIUM 40 MG/0.4 ML DISP.SYRIN SQ SCH (21:31)
--- NOTE | 2018-03-30 06:18 | NUR ---
PATIENT ASLEEP, EASILY AROUSABLE. RESPIRATIONS EVEN. NO SIGNS OF PAIN NOTED. DUE MEDS GIVEN WITH NO ASE NOTED. IVF INFUSING ORDERED. NEEDS ATTENDED. KEPT CLEAN, DRY, AND COMFORTABLE. TURNED AND REPOSITIONED Q 2 HOURS. SAFETY PRECAUTIONS AND COMFORT MEASURES IN PLACE. WILL GIVE REPORT TO DAY SHIFT FOR CONTINUITY OF CARE.
[2018-03-30] MEDS: IV NS 0.9% 1,000 ML IV PRN ×2 (06:25→18:10)
[2018-03-30] MEDS: VANCOMYCIN HCL 125 MG/2.5 ML ORAL.SUSP PO SCH ×4 (06:25→23:58)
[2018-03-30 06:36] LABS: HEMATOCRIT 28 % (39-51); MONOCYTES # (AUTO) 0.5 /CMM (0.1-1.30)
[2018-03-30 06:48] LABS: BASOPHILS % (AUTO) 0.7 % (0.0-2.0); EOSINOPHILS % (AUTO) 1.1 % (0.0-6.0); HEMOGLOBIN 8.8 g/dL (13.5-17.5); LYMPHOCYTES % (AUTO) 16.5 % (20.0-44.0); MEAN CORPUSCULAR HGB CONC 32 g/dl (31.0-36.0); MEAN CORPUSCULAR VOLUME 93 fL (80-96); MONOCYTES % (AUTO) 7.6 % (2.0-12.0); NEUTROPHILS # (AUTO) 4.5 /CMM (1.8-8.9); NEUTROPHILS % (AUTO) 74.1 % (43.0-81.0); PLATELET COUNT (AUTO) 155 /CMM (150-450)
[2018-03-30 07:21] LABS: CALCIUM, SERUM 8.8 mg/dL (8.5-10.1); CREATININE 0.9 mg/dL (0.6-1.3); MAGNESIUM 1.7 mg/dL (1.8-2.4); PHOSPHORUS 2.4 mg/dL (2.5-4.9); POTASSIUM 3.6 mmol/L (3.5-5.1)
[2018-03-30 08:00] VITALS: BP 100/72
[2018-03-30] MEDS: ENSURE ENLIVE CHOC 237 ML CAN PO SCH ×3 (08:00→17:14)
[2018-03-30] MEDS ORDERED: NEUTRA PHOS 1 POWD.PACKET PO ONE (09:00)
[2018-03-30] MEDS: GABAPENTIN 300 MG CAPSULE PO SCH ×3 (09:30→17:17)
[2018-03-30] MEDS: ESCITALOPRAM OXALATE (10 MG) 10 MG TABLET PO SCH (09:30)
[2018-03-30] MEDS: CARBIDOPA/LEVA CR 25/100MG 1 TAB.SA PO SCH ×3 (09:30→17:17)
[2018-03-30] MEDS: ASPIRIN 81 MG TAB.CHEW PO SCH (09:30)
[2018-03-30] MEDS: PANTOPRAZOLE 40 MG TABLET.DR PO SCH (09:30)
[2018-03-30] MEDS: POTASSIUM CHLORIDE 20 MEQ TAB.PRT.SR PO SCH (09:30)
[2018-03-30] MEDS: ACIDOPHILUS/BULGARICUS 1 EACH TAB.CHEW PO SCH ×2 (09:30→17:17)
[2018-03-30] MEDS: MEMANTINE HCL 5 MG TABLET PO SCH (09:31)
[2018-03-30] MEDS: DAKINS QUARTER STRENGTH (0.125%) 480 ML BOTTLE TOP SCH (09:33)
[2018-03-30] MEDS: RIFAXIMIN 200 MG TABLET PO SCH ×3 (09:37→17:19)
[2018-03-30] MEDS: Magnesium 1GM/D5W 100ML PREMIX 100 ML IV SCH ×2 (10:19→12:08)
[2018-03-30 16:00] VITALS: BP 100/69
[2018-03-30] MEDS: REVLIMID 5 MG PO SCH (17:19)
--- NOTE | 2018-03-30 19:00 | NUR ---
RN NOTES RECEIVE PT IN THE BED A/O X 2-3, IN STABLE CONDITION, NOT IN DISTRESS, SAFETY MEASURES IN PLACE. WILL CONTINUE TO MONITOR.
--- NOTE | 2018-03-30 19:10 | NUR ---
PATIENT ASLEEP, EASILY AROUSABLE. RESPIRATIONS EVEN. NO SIGNS OF PAIN NOTED. DUE MEDS GIVEN WITH NO ASE NOTED. IVF INFUSING ORDERED. NEEDS ATTENDED. KEPT CLEAN, DRY, AND COMFORTABLE. TURNED AND REPOSITIONED Q 2 HOURS, DRESSING CHANGED. SAFETY PRECAUTIONS AND COMFORT MEASURES IN PLACE
[2018-03-30 20:00] VITALS: BP 107/67
[2018-03-30] MEDS: ENOXAPARIN SODIUM 40 MG/0.4 ML DISP.SYRIN SQ SCH (20:44)
[2018-03-30] MEDS: ACETAMINOPHEN 325 MG TABLET PO PRN (20:45)
[2018-03-31] MEDS: VANCOMYCIN HCL 125 MG/2.5 ML ORAL.SUSP PO SCH ×3 (05:18→18:09)
[2018-03-31] MEDS: IV NS 0.9% 1,000 ML IV PRN ×2 (05:18→13:54)
--- NOTE | 2018-03-31 06:12 | NUR ---
RN CLOSING NOTE PT IN BED RESTING ASLEEP AND EASILY AWAKEN. TOLERATING ROOM AIR 100%. NO S/S OF RESP DISTRESS OR SOB. REPOSITIONED EVERY 2 HOURS. GOOD SKIN CARE PROVIDED. ALL PT NEEDS ANTICIPATED AND MET. KEPT CLEAN AND DRY AND COMFORT, SAFETY MEASURES IN PLACE, CALL LIGHT WITHIN REACH. WILL ENDORSE TO ENTRY LEVEL ADMINISTRATIVE ASSISTANT FOR BALA. Addendum: 03/31/18 at 0616 by MANUEL WOOD RN NO EPISODES OF DIARRHEA.
[2018-03-31 07:01] LABS: BASOPHILS # (AUTO) 0.1 /CMM (0.0-0.2); BASOPHILS % (AUTO) 0.9 % (0.0-2.0); HEMATOCRIT 27 % (39-51); HEMOGLOBIN 8.6 g/dL (13.5-17.5); LYMPHOCYTES # (AUTO) 0.9 /CMM (0.8-4.8); LYMPHOCYTES % (AUTO) 17.5 % (20.0-44.0); MEAN CORPUSCULAR HGB CONC 32 g/dl (31.0-36.0); MEAN CORPUSCULAR VOLUME 93 fL (80-96); MONOCYTES # (AUTO) 0.5 /CMM (0.1-1.30); MONOCYTES % (AUTO) 9.7 % (2.0-12.0); NEUTROPHILS # (AUTO) 3.8 /CMM (1.8-8.9); NEUTROPHILS % (AUTO) 70.9 % (43.0-81.0); PLATELET COUNT (AUTO) 145 /CMM (150-450); RED BLOOD CELL COUNT(AUTO) 2.89 MIL/uL (4.5-6.0); WHITE BLOOD COUNT (AUTO) 5.4 K/uL (4.3-11.0)
[2018-03-31 07:13] LABS: CALCIUM, SERUM 8.7 mg/dL (8.5-10.1); MAGNESIUM 1.8 mg/dL (1.8-2.4); PHOSPHORUS 2.2 mg/dL (2.5-4.9); POTASSIUM 3.5 mmol/L (3.5-5.1)
--- NOTE | 2018-03-31 07:18 | NUR ---
MS RN OPENING NOTES RECEIVE PT IN THE BED A/O X 2-3, IN STABLE CONDITION, NOT IN DISTRESS, SAFETY MEASURES IN PLACE. WILL CONTINUE TO MONITOR.
[2018-03-31 08:00] VITALS: BP 101/73
--- NOTE | 2018-03-31 08:26 | NUR ---
urine collected (clean catch) and sent to lab
[2018-03-31 08:35] VITALS: BP 101/72
[2018-03-31] MEDS: RIFAXIMIN 200 MG TABLET PO SCH ×3 (08:46→17:26)
[2018-03-31] MEDS: ESCITALOPRAM OXALATE (10 MG) 10 MG TABLET PO SCH (08:46)
[2018-03-31] MEDS: GABAPENTIN 300 MG CAPSULE PO SCH ×3 (08:46→17:26)
[2018-03-31] MEDS: POTASSIUM CHLORIDE 20 MEQ TAB.PRT.SR PO SCH (08:47)
[2018-03-31] MEDS: PANTOPRAZOLE 40 MG TABLET.DR PO SCH (08:47)
[2018-03-31] MEDS: ACIDOPHILUS/BULGARICUS 1 EACH TAB.CHEW PO SCH ×2 (08:47→17:26)
[2018-03-31] MEDS: ASPIRIN 81 MG TAB.CHEW PO SCH (08:47)
[2018-03-31] MEDS: CARBIDOPA/LEVA CR 25/100MG 1 TAB.SA PO SCH ×3 (08:47→17:26)
[2018-03-31] MEDS: MEMANTINE HCL 5 MG TABLET PO SCH (08:47)
[2018-03-31] MEDS: ENSURE ENLIVE CHOC 237 ML CAN PO SCH ×3 (08:49→17:00)
[2018-03-31] MEDS: DAKINS QUARTER STRENGTH (0.125%) 480 ML BOTTLE TOP SCH (08:50)
[2018-03-31 10:12] LABS: APPEARANCE,URINE CLEAR (CLEAR); BILIRUBIN,URINE NEGATIVE (NEGATIVE); BLOOD, URINE 1+ Ery/uL (NEGATIVE); COLOR,URINE YELLOW (YELLOW); KETONES,URINE NEGATIVE (NEGATIVE); LEUKOCYTE ESTERASE ,URINE NEGATIVE (NEGATIVE); NITRITE, URINE NEGATIVE (NEGATIVE); PH,URINE 7.5 (5.0-8.0); PROTEIN,URINE NEGATIVE (NEGATIVE); UGLUCOSE NEGATIVE (NEGATIVE); UROBILINOGEN,URINE 0.2 EU/dL (0.2)
[2018-03-31] MEDS ORDERED: NEUTRA PHOS 1 POWD.PACKET NG ONE (12:00)
[2018-03-31 14:23] LABS: BACTERIA,URINE None seen /HPF (None Seen); SQUAMOUS EPITHELIAL CELL,UR None Seen /HPF (None Seen); WBC,URINE NONE SEEN /HPF (0-3)
[2018-03-31 15:44] VITALS: BP 97/67
--- NOTE | 2018-03-31 18:52 | NUR ---
PT IN BED RESTING ASLEEP AND EASILY AWAKEN. PT ON 02 VIA NC 2L SATURATION 100%. NO S/S OF RESP DISTRESS OR SOB AT THIS TIME. REPOSITIONED EVERY 2 HOURS. SKIN CARE PROVIDED, WOUND CARE PROVIDED ORDERED. ALL PT NEEDS ANTICIPATED AND MET. KEPT CLEAN AND DRY AND COMFORT, SAFETY MEASURES IN PLACE, CALL LIGHT WITHIN REACH.
--- NOTE | 2018-03-31 19:40 | NUR ---
RN OPENING NOTES RECEIVED REPORT FROM [facility] KIRK TELLEZ. FOUND Pt ASLEEP IN BED, EASILY AWAKENED BY NAME. NO S/S OF ACUTE DISTRESS OR SOB NOTED. RESPIRATIONS EVEN AND UNLABORED. PER REPORT Pt IS A/OX3, VERBAL, ABLE TO MAKE NEEDS KNOWN. IV ACCESS ON RFA #22G; IVF NS @125ML/HR, INFUSING WELL. SAFETY MEASURES IN PLACE. BED LOW, LOCKED, HOB ELEVATED, SIDE RAILS UP, CALL LIGHT AND BEDSIDE TABLE WITHIN REACH. WILL CONTINUE TO MONITOR Pt's CONDITION AND SAFETY THROUGHOUT THE NIGHT.
[2018-03-31 20:00] VITALS: BP 96/60
[2018-03-31 21:16] VITALS: BP 96/50
[2018-03-31] MEDS: ENOXAPARIN SODIUM 40 MG/0.4 ML DISP.SYRIN SQ SCH (22:12)
[2018-04-01] MEDS: VANCOMYCIN HCL 125 MG/2.5 ML ORAL.SUSP PO SCH ×4 (00:49→17:00)
[2018-04-01] MEDS: HYDROMORPHONE HCL 2 MG TABLET PO PRN (01:30)
[2018-04-01] MEDS: IV NS 0.9% 1,000 ML IV PRN ×2 (04:45→17:23)
--- NOTE | 2018-04-01 07:30 | NUR ---
MS RN Opening Note Received patient awake, resting in bed. Patient alert and oriented x 3, able to make needs known verbally. Patient is blind in both eyes. Respirations even and unlabored on room air, saturating within baseline. HR tachycardia at 118. Peripheral IV access to the right forearm 22 gauge, intact, patent and running NS at 125 mL. Isolation precautions in place for MRSA nares and C-diff, no loose stool overnight. Safety and Fall precautions in place: bed in lowest and locked position, side rails up x 2, bed alarm on, call light within reach. Reviewed safety measures and plan of care with patient, verbalized understanding. Will continue to monitor and intervene as needed.
--- NOTE | 2018-04-01 07:36 | NUR ---
RN CLOSING NOTES NO SIGNIFICANT CHANGES IN Pt's CONDITION. Pt IS STABLE PER BASELINE. NO S/S OF ACUTE DISTRESS OR SOB NOTED DURING THE NIGHT. ALL NEEDS MET AND ATTENDED TO. Pt IS RESTING IN BED, RESPIRATIONS EVEN AND UNLABORED. SAFETY MEASURES IN PLACE. ENDORSED TO DAYSHIFT RN FOR Pt's BALA.
[2018-04-01 08:00] VITALS: BP 116/71
[2018-04-01] MEDS: RIFAXIMIN 200 MG TABLET PO SCH ×3 (08:48→16:56)
[2018-04-01] MEDS: DAKINS QUARTER STRENGTH (0.125%) 480 ML BOTTLE TOP SCH (08:49)
[2018-04-01] MEDS: POTASSIUM CHLORIDE 20 MEQ TAB.PRT.SR PO SCH (08:49)
[2018-04-01] MEDS: CARBIDOPA/LEVA CR 25/100MG 1 TAB.SA PO SCH ×3 (08:49→16:56)
[2018-04-01] MEDS: ESCITALOPRAM OXALATE (10 MG) 10 MG TABLET PO SCH (08:49)
[2018-04-01] MEDS: ACIDOPHILUS/BULGARICUS 1 EACH TAB.CHEW PO SCH ×2 (08:49→16:52)
[2018-04-01] MEDS: ASPIRIN 81 MG TAB.CHEW PO SCH (08:49)
[2018-04-01] MEDS: MEMANTINE HCL 5 MG TABLET PO SCH (09:03)
[2018-04-01] MEDS: ENSURE ENLIVE CHOC 237 ML CAN PO SCH ×3 (09:03→16:56)
[2018-04-01] MEDS: PANTOPRAZOLE 40 MG TABLET.DR PO SCH (09:04)
[2018-04-01] MEDS: GABAPENTIN 300 MG CAPSULE PO SCH ×3 (09:27→16:51)
[2018-04-01 16:00] VITALS: BP 129/83
[2018-04-01] MEDS: REVLIMID 5 MG PO SCH (17:00)
[2018-04-01] MEDS: ACETAMINOPHEN 325 MG TABLET PO PRN (17:35)
[2018-04-01] MEDS ORDERED: MEROPENEM 1 G in IV NS 0.9% 100 ML IV SCH (19:30)
--- NOTE | 2018-04-01 19:31 | NUR ---
MS RN Closing Note Received patient awake, resting in bed. Patient alert and oriented x 3, able to make needs known verbally. Patient is blind in both eyes. Respirations even and unlabored on 2 L oxygen via nasal cannula, saturating within baseline. HR tachycardia at 120, 1800 oral temp of 100.1. PRN Tylenol given and cooling measures initiated. Infectious disease consult and hospitalist notified. Peripheral IV access to the right forearm 22 gauge, intact, patent and running NS at 125 mL. Patient non-compliant with swallowing medications this shift, educated about risks and benefits of all medications. Crushed medications that were able to in applesauce, helped a bit. Wound care rendered to the sacral wound as ordered. Isolation precautions in place for MRSA nares and C-diff, no loose stool overnight. Safety and Fall precautions in place: bed in lowest and locked position, side rails up x 2, bed alarm on, call light within reach. Reviewed safety measures and plan of care with patient, verbalized understanding. Will endorse to supervisory forester for continuity of care.
[2018-04-01] MEDS ORDERED: FEE PK DOSING 1 MIN EA MC ONE (19:40)
[2018-04-01 20:00] VITALS: BP 116/72
[2018-04-01] MEDS ORDERED: ZOSYN IVPB 3.375 G in IV D5W 50ml IV ONE (20:00)
[2018-04-01] MEDS ORDERED: VANCOMYCIN 1 GM in IV D5W 250 ML IV ONE (20:00)
--- NOTE | 2018-04-01 20:00 | NUR ---
ms/rn opening notes RECEIVED PATIETN IN BED,RESTING COMFORTABLY IN BED,ON OXYGEN VIA NC, NO GRIMACE OR GUARDING, IV FLUIDS RUNNING, IV SITE ON RFA GAUGE 22 WITH NOP S/S OF INFILTRATION, IV ANTIBIOTIC VANCOMYCIN ABT RUNNING FOR AN HOUR, REFUSE TO HAVE IV INSERTED FOR SECOND LINE AT THIS TIME WILL CHECK AND F/U. PROVIDED SNACKS, REQUIRE ASSISTANCE, SHINGLE PACKER TURNED AND REPOSITIONED PATIENT WILL MONITOR.
[2018-04-01] MEDS: MUPIROCIN OINT 2% 22 GM TUBE SCH (21:16)
[2018-04-01] MEDS: ENOXAPARIN SODIUM 40 MG/0.4 ML DISP.SYRIN SQ SCH (21:17)
[2018-04-01] MEDS: MEROPENEM 1 G in IV NS 0.9% 100 ML IV SCH (22:13)
[2018-04-02] VITALS: BP 116/72
[2018-04-02] MEDS ORDERED: PIPERACILLIN /TAZOBACTAM 3.375 G in IV D5W 100 ML IV SCH ×2
--- NOTE | 2018-04-02 00:01 | NUR ---
MS/RN NOTES RECEHECKED PULSE AT 111 NOW AND TEMPERATURE AT 98 DEG F
[2018-04-02] MEDS: VANCOMYCIN HCL 125 MG/2.5 ML ORAL.SUSP PO SCH ×4 (00:07→18:00)
--- NOTE | 2018-04-02 01:14 | NUR ---
MS/RN NOTES BLADDER SCAN CHECK RETENTION AT 149ML PER PROTOCOL ORDER,
[2018-04-02] MEDS: IV NS 0.9% 1,000 ML IV PRN ×2 (04:48→20:26)
--- NOTE | 2018-04-02 05:24 | NUR ---
BLADDER SCAN CHECK AT 124 ML URINE RETENTION, UNABLE TO COLLECT URINE , PATIENT JUST HAD DIAPER CHANGED.
[2018-04-02] MEDS: MEROPENEM 1 G in IV NS 0.9% 100 ML IV SCH ×3 (05:46→20:19)
[2018-04-02 06:24] LABS: BASOPHILS % (AUTO) 0.3 % (0.0-2.0); EOSINOPHILS % (AUTO) 2.4 % (0.0-6.0); HEMATOCRIT 27 % (39-51); HEMOGLOBIN 8.8 g/dL (13.5-17.5); LYMPHOCYTES # (AUTO) 0.9 /CMM (0.8-4.8); LYMPHOCYTES % (AUTO) 21.9 % (20.0-44.0); MEAN CORPUSCULAR HGB CONC 32 g/dl (31.0-36.0); MEAN CORPUSCULAR VOLUME 92 fL (80-96); MONOCYTES # (AUTO) 0.4 /CMM (0.1-1.30); MONOCYTES % (AUTO) 9.9 % (2.0-12.0); NEUTROPHILS # (AUTO) 2.8 /CMM (1.8-8.9); NEUTROPHILS % (AUTO) 65.5 % (43.0-81.0); PLATELET COUNT (AUTO) 132 /CMM (150-450); RED BLOOD CELL COUNT(AUTO) 2.94 MIL/uL (4.5-6.0); WHITE BLOOD COUNT (AUTO) 4.2 K/uL (4.3-11.0)
[2018-04-02 06:46] LABS: CALCIUM, SERUM 8.9 mg/dL (8.5-10.1); CREATININE 1.1 mg/dL (0.6-1.3); MAGNESIUM 1.5 mg/dL (1.8-2.4); PHOSPHORUS 1.7 mg/dL (2.5-4.9); POTASSIUM 3.5 mmol/L (3.5-5.1)
[2018-04-02] MEDS: VANCOMYCIN 0.75 GM in IV D5W 250 ML IV SCH ×3 (06:55→20:23)
--- NOTE | 2018-04-02 07:33 | NUR ---
322-2 MS/RN NOTES PATIETN IN BED, CONTACT ISOLATION , PROVIDED AND KEPT FOLLOWED PROPER HYGIENE CARE, HANDWASHED , TURNED AND REPOSITONED, WOUND CARE PROVIDED, SKIN REDNESS APPLIED ZGUARD, IV ANTIBIOTIC ADMINIDTERED, WILL CONTINUE T MONITOR, CA;; ;IGHTS WITHIN REACH, BED LOCKED. EMILIO ENDORSE TO AM RN FOR BALA.
[2018-04-02 08:00] VITALS: BP 120/79
--- NOTE | 2018-04-02 08:00 | NUR ---
MS RN NOTES PATIENT IN BED RESTING NO SOB OR ACUTE DISTRESS NOTED. PATIENT ALERT, ORIENTED X2 DENIES ANY PAIN OR DISCOMFORT. PERIPHERAL IV INTACT PATENT. BED IN LOW LOCKED POSITION. CALL LIGHT WITHIN REACH. WILL CONTINUE TO MONITOR.
[2018-04-02] MEDS: POTASSIUM CHLORIDE 20 MEQ TAB.PRT.SR PO SCH (08:26)
[2018-04-02] MEDS: ACIDOPHILUS/BULGARICUS 1 EACH TAB.CHEW PO SCH ×2 (08:26→16:39)
[2018-04-02] MEDS: CARBIDOPA/LEVA CR 25/100MG 1 TAB.SA PO SCH ×3 (08:26→16:38)
[2018-04-02] MEDS: ASPIRIN 81 MG TAB.CHEW PO SCH (08:26)
[2018-04-02] MEDS: GABAPENTIN 300 MG CAPSULE PO SCH ×3 (08:26→16:39)
[2018-04-02] MEDS: PANTOPRAZOLE 40 MG TABLET.DR PO SCH (08:27)
[2018-04-02] MEDS: ESCITALOPRAM OXALATE (10 MG) 10 MG TABLET PO SCH (08:27)
[2018-04-02] MEDS: MEMANTINE HCL 5 MG TABLET PO SCH (08:27)
[2018-04-02] MEDS: RIFAXIMIN 200 MG TABLET PO SCH ×3 (08:28→16:40)
[2018-04-02] MEDS: DAKINS QUARTER STRENGTH (0.125%) 480 ML BOTTLE TOP SCH (08:29)
[2018-04-02] MEDS: MUPIROCIN OINT 2% 22 GM TUBE SCH ×2 (08:29→20:22)
[2018-04-02] MEDS: ENSURE ENLIVE CHOC 237 ML CAN PO SCH ×3 (08:30→17:00)
[2018-04-02] MEDS: Magnesium 1GM/D5W 100ML PREMIX 100 ML IV SCH ×2 (09:59→11:14)
[2018-04-02] MEDS ORDERED: MAGNESIUM OXIDE 400 MG TABLET PO ONE (11:00)
[2018-04-02] MEDS ORDERED: K PHOS NEUTRAL 250 MG TABLET PO ONE (12:00)
--- NOTE | 2018-04-02 12:00 | NUR ---
MS RN NOTES PATIENT REFUSING ORAL MEDICATIONS DESPITE EXPLANATION OF RISKS AND BENEFITS. MD MADE AWARE. WILL CONTINUE TO ENCOURAGE.
--- NOTE | 2018-04-02 12:06 | NUR ---
MS RN NOTES PATIENT NONE COMPLIANT WITH TURNING AND REPOSITIONING ONLY ALLOWS TO TURN AND REPOSITION WHEN HE NEEDS A DIAPER CHANGE STATES TO LEAVE HIM ALONE HE WANTS TO REST AND LEFT ALONE.
[2018-04-02 16:00] VITALS: BP 137/53
[2018-04-02] MEDS: HYDROMORPHONE HCL 2 MG TABLET PO PRN (16:39)
--- NOTE | 2018-04-02 17:15 | NUR ---
MS RN NOTES PATIENT ALLOWED TO BE CHANGED AND TURNED WITH ENCOURAGEMENT. REPORT GIVEN TO TK BRADLEY. PATIENT COMFORTABLE ALL DUE MEDICATIONS ADMINISTERED WITH PATIENTS AGREEMENT. ALL NEEDS MET.
--- NOTE | 2018-04-02 17:21 | NUR ---
MS RN NOTE RECEIVED REPORT FROM VANESSA BRADLEY FOR BALA. PATIENT IS IN BED, IN STABLE CONDITION. IN NO APPARENT DISTRESS AT THIS TIME. WILL CONTINUE TO MONITOR.
--- NOTE | 2018-04-02 19:22 | NUR ---
MS RN CLOSING NOTE PATIENT IN BED RESTING NO SOB OR ACUTE DISTRESS NOTED. PATIENT SLEEPING, EASILY AROUSED WITH VERBAL STIMULI. ORIENTED X2. DENIES ANY PAIN OR DISCOMFORT. ON 2L O2 VIA NC, TOLERATING WELL. PERIPHERAL IV INTACT PATENT. KEPT CLEAN AND COMFORTABLE. ALL NEEDS ATTENDED. SAFETY MEASURES IN PLACE. BED IN LOW LOCKED POSITION. SIDE RAILS UP X2, CALL LIGHT WITHIN REACH. WILL ENDORSE TO PM NURSE FOR BALA.
--- NOTE | 2018-04-02 19:30 | NUR ---
MS RN OPENING NOTES: RECEIVED PT ON 2LPM VIA NC AND IS TOLERATING WELL. PT AROUSABLE TO NAME AND TOUCH. PT APPEARS TO BE NONVERBAL, BUT OPENS EYES. AWAITING FOR AMBULANZ TO STORE TEAM LEADER PT HE IS TO GO FOR DISCHARGE TO [facility]. PT HAS IV ON RIGHT FOREARM #20G AND IS BEING INFUSED WITH IV NS AT 125ML/HR. PT ON CONTINUOUS PULSE OX AND NOTED FLUCTUATING SLIGHTLY UNDER 120 AND BELOW 130S. PER AM NURSE, HR BASELINE IS 120S. BED ALARM ACTIVATED. BED KEPT IN LOW, LOCKED POSITION, AND SIDE RAILS X 2UP. WILL CONTINUE TO MONITOR PT.
[2018-04-02 20:00] VITALS: BP 99/54
--- NOTE | 2018-04-02 20:24 | NUR ---
MS RN NOTES: VANCO TROUGH 25. HELD VANCO DOSE FOR TONIGHT.
--- NOTE | 2018-04-02 21:25 | NUR ---
MS RN NOTES: GUERLINE FROM [facility] CALLED AND SAID THAT ETA FOR PICKUP IS 90 MINUTES. INFORMED HER THAT BASELINE OF PT FOR HIS HR IS AROUND 120S. WAS ENDORSED FROM PREVIOUS NURSE ABOUT THAT WELL THAT GRADUATE RECRUITER OF [place] AWARE. NED BRADLEY FROM [facility] GOT REPORT FROM AM NURSE.
[2018-04-02] MEDS: ENOXAPARIN SODIUM 40 MG/0.4 ML DISP.SYRIN SQ SCH (21:38)
--- NOTE | 2018-04-02 22:50 | NUR ---
MS BRADLYE NOTES: BLADDER SCAN PERFORMED AT BEDSIDE. SHOWING 174. Addendum: 04/02/18 at 2327 by EAMON SWAN RN
[2018-04-02 23:02] VITALS: BP 105/75
--- NOTE | 2018-04-02 23:03 | NUR ---
MS RN NOTES: INDUSTRIAL CLEANER AT BEDSIDE.
--- NOTE | 2018-04-02 23:05 | NUR ---
MS BRADLEY NOTES: IV REMOVED. BELONGINGS/MEDS FROM PHARMACY GIVEN WITH [employer]OW TRUCK DISPATCHER. Addendum: 04/02/18 at 2327 by EAMON SWAN RN WOUND TX PERFORMED ORDERED. CHANGED DIAPER WELL WITH DIRECTOR OF OPERATIONS SUPPORT. Addendum: 04/03/18 at 0352 by EAMON SWAN RN MEDS IN CASETTE REVLIMID 5MG, PT'S OWN MEDS, GIVEN TO [employer] TR[employer] DISPATCHER TO TAKE TO [facility] WELL.
--- NOTE | 2018-04-02 23:15 | NUR ---
MS BRADLEY NOTES: PT ESCORTED WITH 2 GEAR SHAPER SET UP OPERATOR. ARM BANDS REMOVED WELL. Addendum: 04/02/18 at 2346 ismael SWAN RN PT TO GO TO [facility]. Addendum: 04/03/18 at 0356 ismael SWAN RN PT LEFT IN STABLE CONDITION.
[2018-04-03] MEDS ORDERED: VANCOMYCIN 0.75 GM in IV D5W 250 ML IV SCH (06:00)
== END 2018-04-02 23:15 | DRG 981 ==
LOC: ER 10:11 → EDSEX 10:11 → MED 13:14
PROVIDERS: ADMIT Nurse Practitioner Acute Care; ATTEND Registered Nurse
DX: A04.72 Enterocolitis due to Clostridium difficile, not specified as recurrent (principal); L89.154 Pressure ulcer of sacral region, stage 4; N17.0 Acute kidney failure with tubular necrosis; E43 Unspecified severe protein-calorie malnutrition; J18.9 Pneumonia, unspecified organism; C90.00 Multiple myeloma not having achieved remission; G82.20 Paraplegia, unspecified; E86.0 Dehydration; G20 Parkinson's disease; R62.7 Adult failure to thrive; R13.10 Dysphagia, unspecified; Z74.01 Bed confinement status; Z88.1 Allergy status to other antibiotic agents; Z88.8 Allergy status to other drugs, medicaments and biological substances; Z79.82 Long term (current) use of aspirin; Z79.899 Other long term (current) drug therapy; F02.80 Dementia in other diseases classified elsewhere, unspecified severity, without behavioral disturbance, psychotic disturbance, mood disturbance, and anxiety; N20.0 Calculus of kidney; M85.80 Other specified disorders of bone density and structure, unspecified site; Z98.890 Other specified postprocedural states; Z93.1 Gastrostomy status; Z92.21 Personal history of antineoplastic chemotherapy; Z87.442 Personal history of urinary calculi; Z86.19 Personal history of other infectious and parasitic diseases; E61.1 Iron deficiency; H54.8 Legal blindness, as defined in USA; E87.6 Hypokalemia; D64.9 Anemia, unspecified; N21.0 Calculus in bladder; B02.9 Zoster without complications; F41.9 Anxiety disorder, unspecified; G89.4 Chronic pain syndrome
CPT/HCPCS: 36415; 71045-TC; 80048-TC; 80053-TC; 80061-TC; 80076-TC; 80202-TC; 81000-TC; 82040-TC; 83540-TC; 83690-TC; 83735-TC; 84100-TC; 84443-TC; 84484-TC; 85025-TC; 85730-TC; 86850-TC; 87081-TC; 93307-TC; A4216; A6402; A6403; G0378; J0696; J1650; J2185; J2543; J3370; J3475; J3480; J7030; J7060; P9047